=== PATIENT | male | born 1940 | race Caucasian/White ===

== ENCOUNTER 2020-03-21 11:20 | Emergency (ER) | payer MEDICARE ==
[2020-03-21] MEDS ORDERED: Sodium Chloride 0.9% 1000 ML 1,000 ML IV STA (11:59)
--- NOTE | 2020-03-21 11:59 | ERPHSYRPT ---
- History of Present Illness Time Seen by Provider: 03/21/20 11:57 Source: patient Exam Limitations: no limitations Patient Subjective Stated Complaint: leg pain, weakness, emesis on arrival to ED. Triage Nursing Assessment: pt to ED c/o bilat leg pain, weakness while ambulating, and had 1 episode emesis on arrival to ED. limited PO intake today, sips of pepsi is only PO intake today. denies ND or abd pain and states he has not been vomiting until now. reports being out in town without mask and has been at [employer] with no mask. pt denies any knowledge of COVID exposure but is unsure. rates 3/10 pain in legs that worsens with ambulation. unsteady gate with 1 assist. A&OX4. lungs clear and equal bilaterally. Physician History: c/o leg pain, weakness, vomiting for 1 day c/o bilat leg pain, weakness while ambulating, and had 1 episode emesis on arrival to ED. limited PO intake today, sips of pepsi is only PO intake today. denies ND or abd pain and states he has not been vomiting until now. reports being out in town without mask and has been at [employer] with no mask. pt denies any knowledge of COVID exposure but is unsure. rates 3/10 pain in legs that worsens with ambulation. unsteady gait Allergies/Adverse Reactions: No Known Drug Allergies Allergy (Unverified 03/29/14 00:07) Home Medications: Glimepiride 4 mg [Amaryl 4 mg] 4 mg PO DAILY 03/29/14 [History] Metformin HCl 1000 mg [Glucophage 1000 MG] 1,000 mg PO DAILY 03/29/14 [History] lisinopriL [Lisinopril] 20 mg PO DAILY 03/29/14 [History] Hx Tetanus, Diphtheria Vaccination/Date Given: No Hx Influenza Vaccination/Date Given: No Hx Pneumococcal Vaccination/Date Given: No Immunizations Up to Date: No Travel Risk - International Travel Have you traveled outside of the country in past 3 weeks: No - Coronavirus Screening Are you exhibiting any of the following symptoms?: Yes Symptoms: Vomiting/Diarrhea Close contact with a COVID-19 positive Pt in past 14-21 Days: No - Past Medical History Pertinent Past Medical History: Yes Neurological History: No Pertinent History ENT History: No Pertinent History Cardiac History: Hypertension Respiratory History: No Pertinent History Endocrine Medical History: Diabetes Type II Musculoskeletal History: No Pertinent History GI Medical History: No Pertinent History History: No Pertinent History Psycho-Social History: No Pertinent History Male Reproductive Disorders: No Pertinent History - Past Surgical History Past Surgical History: Yes Neuro Surgical History: No Pertinent History Cardiac: No Pertinent History Respiratory: No Pertinent History Gastrointestinal: Appendectomy Genitourinary: No Pertinent History Musculoskeletal: No Pertinent History Male Surgical History: No Pertinent History - Social History Smoking Status: Never smoker Exposure to second hand smoke: No Drug Use: none Patient Lives Alone: No - Nursing Vital Signs Nursing Vital Signs: Initial Vital Signs Temperature 99.1 F 03/21/20 11:35 Pulse Rate 60 03/21/20 11:35 Respiratory Rate 21 03/21/20 11:35 Blood Pressure 126/72 03/21/20 11:35 O2 Sat by Pulse Oximetry 97 03/21/20 11:35 Pain Scale Pain Intensity 3 - Physical Exam SpO2: 97 - Radiology Ultrasound Exam Arterial Lower Extremity Ultrasound: tele radiology report Ordered Tests: Active Orders 24 hr Category Date Time Status Orthostatic Vital Signs STAT Care 03/21/20 11:59 Active ULTRASOUND BILATERAL LOWER EXTREMITY [VENOUS BILATERAL Exams 03/21/20 12:47 Ordered EXTREMITY] [US] Stat AMYLASE Stat Lab 03/21/20 11:45 Completed CBC W DIFF Stat Lab 03/21/20 11:45 Completed CMP Stat Lab 03/21/20 11:45 Completed D-DIMER QUANTITATIVE Stat Lab 03/21/20 11:45 Completed LIPASE Stat Lab 03/21/20 11:45 Completed Lactic Acid Stat Lab 03/21/20 11:59 Completed UA W/RFX UR CULTURE Stat Lab 03/21/20 12:00 Ordered Medication Summary Discontinued Medications Generic Name Dose Route Start Last Admin Trade Name Freq PRN Reason Stop Dose Admin Sodium Chloride 1,000 mls @ 999 mls/hr 03/21/20 11:59 03/21/20 13:24 Sodium Chloride 0.9% 1000 Ml IV 03/21/20 12:59 Infused .Q1H1M STA Infusion Sodium Chloride Confirm 03/21/20 12:03 Sodium Chloride 0.9% 1000 Ml Administered 03/21/20 12:04 Dose 1,000 mls @ ud .ROUTE .[facility] Lab/Rad Data: Laboratory Result Diagrams 03/21/20 11:45 03/21/20 11:45 Laboratory Results 03/21/20 03/21/20 03/21/20 Range/Units 11:59 11:45 11:45 WBC (4.0-10.5) K/mm3 RBC (4.1-5.6) M/mm3 Hgb (12.5-18.0) gm/dl Hct (42-50) % MCV (78-100) fl MCH (26-32) pg MCHC (32-36) g/dl RDW (11.5-14.0) % Plt Count (150-450) K/mm3 MPV (7.5-11.0) fl Gran % (36.0-66.0) % Eos # (Auto) (0-0.5) Absolute Lymphs (auto) (1.0-4.6) Absolute Monos (auto) (0.0-1.3) Lymphocytes % (24.0-44.0) % Monocytes % (0.0-12.0) % Eosinophils % (0.00-5.0) % Basophils % (0.0-0.4) % Absolute Granulocytes (1.4-6.9) Basophils # (0-0.4) D-Dimer 536 H* (215-500) ng/mL Sodium 133 L (137-145) mmol/L Potassium 4.9 (3.5-5.1) mmol/L Chloride 105 (98-107) mmol/L Carbon Dioxide 18 L (22-30) mmol/L Anion Gap 15.0 (5-15) MEQ/L BUN 26 H (9-20) mg/dL Creatinine 1.01 (0.66-1.25) mg/dL Estimated GFR > 60.0 ML/MIN Glucose 108 H (74-106) mg/dL Lactic Acid 1.8 (0.4-2.0) Calcium 9.5 (8.4-10.2) mg/dL Total Bilirubin 1.00 (0.2-1.3) mg/dL AST 18 (17-59) U/L ALT 11 (0-50) U/L Alkaline Phosphatase 71 (38-126) U/L Serum Total Protein 7.8 (6.3-8.2) g/dL Albumin 4.1 (3.5-5.0) g/dL Amylase 42 (30-110) U/L Lipase 21 L (23-300) U/L 03/21/20 Range/Units 11:45 WBC 11.0 H (4.0-10.5) K/mm3 RBC 4.67 (4.1-5.6) M/mm3 Hgb 14.0 (12.5-18.0) gm/dl Hct 42.4 (42-50) % MCV 90.8 (78-100) fl MCH 30.0 (26-32) pg MCHC 33.0 (32-36) g/dl RDW 14.0 (11.5-14.0) % Plt Count 158 (150-450) K/mm3 MPV 9.8 (7.5-11.0) fl Gran % 73.8 H (36.0-66.0) % Eos # (Auto) 0.06 (0-0.5) Absolute Lymphs (auto) 1.55 (1.0-4.6) Absolute Monos (auto) 1.25 (0.0-1.3) Lymphocytes % 14.2 L (24.0-44.0) % Monocytes % 11.4 (0.0-12.0) % Eosinophils % 0.5 (0.00-5.0) % Basophils % 0.1 (0.0-0.4) % Absolute Granulocytes 8.08 H (1.4-6.9) Basophils # 0.01 (0-0.4) D-Dimer (215-500) ng/mL Sodium (137-145) mmol/L Potassium (3.5-5.1) mmol/L Chloride (98-107) mmol/L Carbon Dioxide (22-30) mmol/L Anion Gap (5-15) MEQ/L BUN (9-20) mg/dL Creatinine (0.66-1.25) mg/dL Estimated GFR ML/MIN Glucose (74-106) mg/dL Lactic Acid (0.4-2.0) Calcium (8.4-10.2) mg/dL Total Bilirubin (0.2-1.3) mg/dL AST (17-59) U/L ALT (0-50) U/L Alkaline Phosphatase (38-126) U/L Serum Total Protein (6.3-8.2) g/dL Albumin (3.5-5.0) g/dL Amylase (30-110) U/L Lipase (23-300) U/L - Progress Progress: improved Counseled pt/family regarding: lab results, diagnosis, need for follow-up, rad results - Departure Departure Disposition: Home Clinical Impression: Bilateral leg weakness, Peripheral vascular disease due to secondary diabetes, Spinal stenosis of lumbar region with neurogenic claudication, COVID-19 Condition: Stable Critical Care Time: No Referrals: SUNIL RODRIGUEZ MD [Primary Care Provider] - Instructions: Peripheral Vascular (Arterial) Disease (DC), Coronavirus Disease 2019 (COVID-19) (DC) Additional Instructions: Discharge/Care Plan LISA DARDEN was seen on 03/21/20 in the Emergency Room. The patient was counseled regarding Diagnosis,Lab results, Imaging studies, need for follow up and when to return to the Emergency Room. Prescriptions given: Discharge Note I have spoken with the patient and/or caregivers. I have explained the patient's condition, diagnosis and treatment plan based on the information available to me at this time. I have answered the patient's and/or caregiver's questions and addressed any concerns. The patient and/or caregivers have as good understanding of the patient's diagnosis, condition and treatment plan as can be expected at this point. The vital signs have been stable. The patient's condition is stable and appropriate for discharge from the emergency department. The patient will pursue further outpatient evaluation with the primary care physician or other designated or consulting physician as outlined in the discharge instructions. The patient and/or caregivers are agreeable to this plan of care and follow-up instructions have been explained in detail. The patient and/or caregivers have received these instruction. The patient/and or caregivers are aware that any significant change in condition or worsening of symptoms should prompt an immediate return to this or the closest emergency department or call 911. LISA DARDEN was seen on 03/21/20 n the Emergency Room. At that time you were treated for an emergent condition, during your visit Laboratory, Radiology and/or other procedures may have been ordered. It is very important that you follow-up with your Primary Care Physician SUNIL RODRIGUEZ within the next 24-48 hours to review your Emergency Room visit and the final results of testing that was ordered. Some test results such as Urine Cultures, Blood Cultures, and other cultures if ordered will not be finalized for 24-48 hours. If you do not have a Primary Care Provider please call the medical records department at [phone] ext [phone] to obtain a copy of your results or you may sign into our patient portal to obtain these results by visiting us @ [email or web address] and completing the following steps: 1. Click on the Patient Portal link 2. Click the Patient Self Enrollment Link to complete the enrollment form and entering your 3. Once the enrollment form is completed you will receive an email with a temporary ID and password at the email address you provided. 4. Next choose a user name and password. Your user name must be at least 4 characters long and your password must be at least 4 characters long. 5. Choose a security question from the list and provide your answer to the question. If you already have signed into the Health Portal you may access your Health Care Information 10/10 by the following steps: 1. Login to our website @ [email or web address] 2. Enter your original user name and password. FAQS The [facility] Health Portal is an online tool that contains your Lab Results, Rad iology Reports, Visit History, Discharge Instructions and Health Summary Lab and Radiology Results will not be available for 72 hours on the portal. The Portal is a secure site, passwords are encryted and URLs are re-written so they cannot be copied and pasted. You and authorized family members are the only ones who can access your Portal. Also there is a timeout feature that protects your information if you leave the Portal page open. If you have technical difficulty please use the Contact Us link on the page this will allow you to submit any questions you have regarding the Portal or you may contact the Medical Record Department at [phone] ext [phone].
[2020-03-21] MEDS ORDERED: Sodium Chloride 0.9% 1000 ML 1,000 ML ONE (12:03)
[2020-03-21 12:06] LABS: Absolute Neutrophil Ct (ANC) 8.08 (1.4-6.9); BASOPHIL % 0.1 % (0.0-0.4); Basophil (Absolute #) 0.01 (0-0.4); Eosinophil % 0.5 % (0.00-5.0); Eosinophil (Absolute #) 0.06 (0-0.5); Hematocrit 42.4 % (42-50); Lymphocyte (Absolute #) 1.55 (1.0-4.6); Lymphocytes % 14.2 % (24.0-44.0); Mean Cell Volume 90.8 fl (78-100); Mean Platelet Volume 9.8 fl (7.5-11.0); Monocyte (Absolute #) 1.25 (0.0-1.3); Monocytes % 11.4 % (0.0-12.0); Neutrophil % 73.8 % (36.0-66.0); Platelet Count 158 K/mm3 (150-450); Red Blood Count 4.67 M/mm3 (4.1-5.6)
[2020-03-21 12:14] LABS: ALBUMIN 4.1 g/dL (3.5-5.0); ALKALINE PHOSPHATASE 71 U/L (38-126); AMYLASE 42 U/L (30-110); BLOOD UREA NITROGEN 26 mg/dL (9-20); CHLORIDE 105 mmol/L (98-107); Calcium 9.5 mg/dL (8.4-10.2); Carbon Dioxide 18 mmol/L (22-30); Creatinine 1 1.01 mg/dL (0.66-1.25); EST GLOMERULAR FILTRATION RATE > 60.0 ML/MIN; Glucose 108 mg/dL (74-106); LIPASE 21 U/L (23-300); Potassium 4.9 mmol/L (3.5-5.1); SGOT/AST 18 U/L (17-59); SGPT/ALT 11 U/L (0-50); SODIUM 133 mmol/L (137-145); Total Protein 7.8 g/dL (6.3-8.2)
[2020-03-21 13:13] VITALS: BP 116/67
[2020-03-21 14:00] VITALS: PULSE 77; O2SAT 98
--- NOTE | 2020-03-21 17:04 | XRAY ---
Indication: Weakness. Suspect Covid 19. 2-dimensional sonogram and color Doppler imaging of the major venous vessels of the left and right leg was performed. Comparison: None Minimal nonoccluding thrombus seen in the distal left femoral vein. No other thrombus seen in the examined deep venous vessels of the remaining left and right leg including greater saphenous vein. Patent veins demonstrate normal compressibility. Venous waveforms are normal with and without augmentation. Impression: 1. Nonoccluding DVT distal left femoral vein. 2. Right leg negative for DVT. Comment: Preliminary report was given.
== END 2020-03-21 14:07 | disposition home or self-care (01) ==
LOC: ED 11:20
DX: M62.81 Muscle weakness (generalized) (principal); E11.51 Type 2 diabetes mellitus with diabetic peripheral angiopathy without gangrene; M48.062 Spinal stenosis, lumbar region with neurogenic claudication; U07.1 COVID-19; M79.605 Pain in left leg; M79.604 Pain in right leg; R11.2 Nausea with vomiting, unspecified; Z79.899 Other long term (current) drug therapy; R19.7 Diarrhea, unspecified; I10 Essential (primary) hypertension
CPT/HCPCS: 36000; 36415; 80053; 82150; 83605; 83690; 85025; 85379; 93970; 96360; 99284; U0003

== ENCOUNTER 2021-06-29 18:49 | Observation (INO) | payer MEDICARE ==
[2021-06-29] MEDS ORDERED: Magnesium 1 Gm / 100 Ml D5W*** 100 ML IV ONE (19:05)
[2021-06-29] MEDS ORDERED: Sodium Chloride 0.9% 1000 ML 1,000 ML IV STA (19:11)
[2021-06-29] MEDS: Magnesium 1 Gm / 100 Ml D5W*** 100 ML IV SCH ×2 (19:21→19:48)
--- NOTE | 2021-06-29 19:24 | ERPHSYRPT ---
- History of Present Illness Time Seen by Provider: 06/29/21 18:58 Source: patient, EMS Exam Limitations: other (Dementia) Patient Subjective Stated Complaint: PT HERE FOR POSSIBLE FALL, EMS WAS CALLED TO HOUSE FOR A FALL, UNSURE HOW LONG PT WAS ON FLOOR, EMS FOUND PT IN BED, HE DENIES ANY COS Triage Nursing Assessment: PT ALERT, ORIENTED TO PERSON,PLACE AND TIME, HE IS UNSURE IF HE FELL, PT CLOTHES DRY AND CLEAN, RESP EASY, FACE MASK IN PLACE, NO EDEMA NOTED. Physician History: 80 years old male with history of dementia, hypertension, hyperlipidemia, diabetes mellitus, pacemaker placement is brought in the ER by EMS with questionable history of fall, being on the floor per EMS for the last 2 days. On EMS arrival patient was lying on the bed. Patient is awake alert and oriented and denies any fall, chest pain/shortness of breath, injury anywhere else. While in the ER patient has his run of V. tach without any symptoms. Patient is not a good historian and history is limited. Timing/Duration: day(s) (2), worse Severity: moderate Associated Symptoms: weakness Allergies/Adverse Reactions: No Known Drug Allergies Allergy (Verified 06/29/21 19:05) Home Medications: Dabigatran Etexilate Mesylate [Pradaxa] 1 ea DAILY 06/29/21 [History] Donepezil HCl [Aricept] 5 mg PO DAILY 06/29/21 [History] Empagliflozin [Jardiance] 10 mg PO DAILY 06/29/21 [History] Glimepiride 4 mg [Amaryl 4 mg] 4 mg PO DAILY 06/29/21 [History] Pravastatin Sodium 1 ea DAILY 06/29/21 [History] Spironolactone 25 mg [Aldactone 25 MG] 25 mg PO DAILY 06/29/21 [History] Tamsulosin HCl 0.4 mg [Flomax 0.4 MG] 1 ea DAILY 06/29/21 [History] Hx Tetanus, Diphtheria Vaccination/Date Given: No Hx Influenza Vaccination/Date Given: No Hx Pneumococcal Vaccination/Date Given: No Immunizations Up to Date: Yes Travel Risk - International Travel Have you traveled outside of the country in past 3 weeks: No - Coronavirus Screening Are you exhibiting any of the following symptoms?: Yes Symptoms: Fever Close contact with a COVID-19 positive Pt in past 14-21 Days: No - Vaccine Status Have you recieved a Covid-19 vaccination: Yes Stacker: Unknown - Vaccination Dates Date of 2cond Vaccination (if applicable): 2020 Dates if Unknown: ? - Review of Systems All Other Systems: Unable due to dementia - Past Medical History Pertinent Past Medical History: Yes Neurological History: No Pertinent History ENT History: No Pertinent History Cardiac History: Hypertension Respiratory History: No Pertinent History Endocrine Medical History: Diabetes Type II Musculoskeletal History: No Pertinent History GI Medical History: No Pertinent History History: No Pertinent History Psycho-Social History: No Pertinent History Male Reproductive Disorders: No Pertinent History - Past Surgical History Past Surgical History: Yes Neuro Surgical History: No Pertinent History Cardiac: Pacemaker Respiratory: No Pertinent History Gastrointestinal: Appendectomy Genitourinary: No Pertinent History Musculoskeletal: No Pertinent History Male Surgical History: No Pertinent History - Social History Smoking Status: Never smoker Exposure to second hand smoke: No Drug Use: none Patient Lives Alone: No - Nursing Vital Signs Nursing Vital Signs: Initial Vital Signs Temperature 100.1 F 06/29/21 18:53 Pulse Rate 100 H 06/29/21 18:53 Respiratory Rate 18 06/29/21 18:53 Blood Pressure 159/82 06/29/21 18:53 O2 Sat by Pulse Oximetry 96 06/29/21 18:53 Pain Scale Pain Intensity 0 - Physical Exam General Appearance: no apparent distress, alert Eye Exam: PERRL/EOMI, eyes nml inspection Ears, Nose, Throat Exam: normal ENT inspection, TMs normal, pharynx normal, moist mucous membranes Neck Exam: normal inspection, non-tender, supple, full range of motion Respiratory Exam: normal breath sounds, lungs clear Cardiovascular Exam: regular rate/rhythm, normal heart sounds Gastrointestinal/Abdomen Exam: soft, normal bowel sounds, No tenderness Back Exam: normal inspection, normal range of motion Extremity Exam: normal inspection, normal range of motion Neurologic Exam: alert, oriented x 3, cooperative, history department chair II-XII nml as tested Skin Exam: normal color SpO2 Interpretation: normal SpO2: 96 O2 Delivery: Room Air - Course EKG Interpreted by Me: RATE (96, paced), prolonged QT interval, Left Bundle Branch Block, Q-wave, Non-specific ST Changes, Other (Second EKG time 11:33 PM. Rate 95, sinus rhythm, atrial premature complexes, right bundle branch block, ST depression in inferolateral leads.) Ordered Tests: Active Orders 24 hr Category Date Time Status EKG-ER Only STAT Care 06/29/21 19:11 Active IV Insertion STAT Care 06/29/21 19:11 Active NPO (ED) STAT Care 06/29/21 19:11 Active CERVICAL SPINE WO CONTRAST [CT] Stat Exams 06/29/21 19:11 Taken CHEST 1 VIEW (PORTABLE) Stat Exams 06/29/21 19:11 Taken HEAD WITHOUT CONTRAST [CT] Stat Exams 06/29/21 19:11 Taken BLOOD CULTURE Stat Lab 06/29/21 20:00 Received BNP [NT PRO BNP] Stat Lab 06/29/21 19:20 Completed CBC W DIFF Stat Lab 06/29/21 19:20 Completed CK (IN-HOUSE) [CK-Creatinine Phosphokinase] Stat Lab 06/29/21 19:20 Completed CMP Stat Lab 06/29/21 19:20 Completed LIPASE Stat Lab 06/29/21 19:20 Completed MAG [MAGNESIUM] Stat Lab 06/29/21 19:20 Completed TROPONIN Q3H Lab 06/29/21 19:20 Completed TROPONIN Q3H Lab 06/29/21 22:25 Completed TROPONIN Q3H Lab 06/30/21 01:15 Ordered TROPONIN Q3H Lab 06/30/21 04:15 Ordered TROPONIN Q3H Lab 06/30/21 07:15 Ordered Transfer Order Routine Transfer 06/29/21 Ordered Medication Summary Generic Name Dose Route Start Last Admin Trade Name Freq PRN Reason Stop Dose Admin Magnesium Sulfate/Dextrose 100 mls @ 100 mls/hr 06/29/21 19:15 06/29/21 19:48 Magnesium 1 Gm / 100 Ml D5w IV 06/29/21 21:14 100 mls/hr Q1H MIRTHA Administration Discontinued Medications Generic Name Dose Route Start Last Admin Trade Name Freq PRN Reason Stop Dose Admin Aspirin 324 mg 06/29/21 23:49 06/29/21 23:52 Aspirin 81 Mg Tab.Chew PO 06/29/21 23:50 324 mg STAT ONE Administration Magnesium Sulfate/Dextrose Confirm 06/29/21 19:05 Magnesium 1 Gm / 100 Ml D5w Administered 06/29/21 19:06 Dose 100 mls @ ud IV .STK-MED ONE Sodium Chloride 1,000 mls @ 999 mls/hr 06/29/21 19:11 06/29/21 21:21 Sodium Chloride 0.9% 1000 Ml IV 06/29/21 20:11 Infused .Q1H1M STA Infusion Sodium Chloride Confirm 06/29/21 19:46 Sodium Chloride 0.9% 1000 Ml Administered 06/29/21 19:47 Dose 1,000 mls @ ud .ROUTE .STK-MED ONE Lab/Rad Data: Laboratory Result Diagrams 06/29/21 19:20 06/29/21 19:20 Laboratory Results 06/29/21 06/29/21 06/29/21 Range/Units 22:25 21:30 19:20 WBC (4.0-10.5) K/mm3 RBC (4.1-5.6) M/mm3 Hgb (12.5-18.0) gm/dl Hct (42-50) % MCV (78-100) fl MCH (26-32) pg MCHC (32-36) g/dl RDW (11.5-14.0) % Plt Count (150-450) K/mm3 MPV (7.5-11.0) fl Gran % (36.0-66.0) % Eos # (Auto) (0-0.5) Absolute Lymphs (auto) (1.0-4.6) Absolute Monos (auto) (0.0-1.3) Lymphocytes % (24.0-44.0) % Monocytes % (0.0-12.0) % Eosinophils % (0.00-5.0) % Basophils % (0.0-0.4) % Absolute Granulocytes (1.4-6.9) Basophils # (0-0.4) Sodium (137-145) mmol/L Potassium (3.5-5.1) mmol/L Chloride (98-107) mmol/L Carbon Dioxide (22-30) mmol/L Anion Gap (5-15) MEQ/L BUN (9-20) mg/dL Creatinine (0.66-1.25) mg/dL Estimated GFR ML/MIN Glucose (74-106) mg/dL Calcium (8.4-10.2) mg/dL Magnesium (1.6-2.3) mg/dL Total Bilirubin (0.2-1.3) mg/dL AST (17-59) U/L ALT (0-50) U/L Alkaline Phosphatase (38-126) U/L Creatine Kinase (55-170) U/L Troponin I 0.128 H* 0.066 H* (0.000-0.034) ng/mL NT-Pro-B Natriuret Pep (0-1800) pg/mL Serum Total Protein (6.3-8.2) g/dL Albumin (3.5-5.0) g/dL Lipase (23-300) U/L Urinalys Dipstick Clnc Urine Color (YELLOW) Urine Appearance (CLEAR) Urine pH (5-6) Ur Specific Linden (1.005-1.025) POC Urine Protein Conf (Negative) Urine Ketones (NEGATIVE) Urine Nitrite (NEGATIVE) Urine Bilirubin (NEGATIVE) Urine Urobilinogen (0-1) mg/dL Urine Leukocytes (NEGATIVE) Urine WBC (Auto) (0-5) /HPF Urine RBC (Auto) (0-2) /HPF U Epithel Cells (Auto) (FEW) /HPF Urine Bacteria (Auto) (NEGATIVE) /HPF Urine RBC (0-5) Lucas/ul Urine Mucus (Auto) (NEGATIVE) /HPF Ur Culture Indicated? Urine Glucose (NEGATIVE) mg/dL Influenza Type A Ag NEGATIVE (NEGATIVE) Influenza Type B Ag NEGATIVE (NEGATIVE) RSV (PCR) NEGATIVE (Negative) SARS-CoV-2 (PCR) NEGATIVE (NEGATIVE) 06/29/21 06/29/21 06/29/21 Range/Units 19:20 19:20 19:20 WBC 16.0 H (4.0-10.5) K/mm3 RBC 4.85 (4.1-5.6) M/mm3 Hgb 15.0 (12.5-18.0) gm/dl Hct 45.6 (42-50) % MCV 94.0 (78-100) fl MCH 30.9 (26-32) pg MCHC 32.9 (32-36) g/dl RDW 13.7 (11.5-14.0) % Plt Count 136 L (150-450) K/mm3 MPV 9.9 (7.5-11.0) fl Gran % 83.8 H (36.0-66.0) % Eos # (Auto) 0.01 (0-0.5) Absolute Lymphs (auto) 1.34 (1.0-4.6) Absolute Monos (auto) 1.21 (0.0-1.3) Lymphocytes % 8.4 L (24.0-44.0) % Monocytes % 7.6 (0.0-12.0) % Eosinophils % 0.1 (0.00-5.0) % Basophils % 0.1 (0.0-0.4) % Absolute Granulocytes 13.39 H (1.4-6.9) Basophils # 0.02 (0-0.4) Sodium 135 L (137-145) mmol/L Potassium 4.5 (3.5-5.1) mmol/L Chloride 104 (98-107) mmol/L Carbon Dioxide 15 L* (22-30) mmol/L Anion Gap 20.5 H (5-15) MEQ/L BUN 28 H (9-20) mg/dL Creatinine 0.91 (0.66-1.25) mg/dL Estimated GFR > 60.0 ML/MIN Glucose 178 H (74-106) mg/dL Calcium 9.0 (8.4-10.2) mg/dL Magnesium 2.7 H (1.6-2.3) mg/dL Total Bilirubin 1.10 (0.2-1.3) mg/dL AST 27 (17-59) U/L ALT 15 (0-50) U/L Alkaline Phosphatase 75 (38-126) U/L Creatine Kinase 141 (55-170) U/L Troponin I (0.000-0.034) ng/mL NT-Pro-B Natriuret Pep 4570 H (0-1800) pg/mL Serum Total Protein 7.5 (6.3-8.2) g/dL Albumin 4.2 (3.5-5.0) g/dL Lipase 13 L (23-300) U/L Urinalys Dipstick Clnc Urine Color (YELLOW) Urine Appearance (CLEAR) Urine pH (5-6) Ur Specific Lind[place] (1.005-1.025) POC Urine Protein Conf (Negative) Urine Ketones (NEGATIVE) Urine Nitrite (NEGATIVE) Urine Bilirubin (NEGATIVE) Urine Urobilinogen (0-1) mg/dL Urine Leukocytes (NEGATIVE) Urine WBC (Auto) (0-5) /HPF Urine RBC (Auto) (0-2) /HPF U Epithel Cells (Auto) (FEW) /HPF Urine Bacteria (Auto) (NEGATIVE) /HPF Urine RBC (0-5) Lucas/ul Urine Mucus (Auto) (NEGATIVE) /HPF Ur Culture Indicated? Urine Glucose (NEGATIVE) mg/dL Influenza Type A Ag (NEGATIVE) Influenza Type B Ag (NEGATIVE) RSV (PCR) (Negative) SARS-CoV-2 (PCR) (NEGATIVE) 06/29/21 Range/Units 19:11 WBC (4.0-10.5) K/mm3 RBC (4.1-5.6) M/mm3 Hgb (12.5-18.0) gm/dl Hct (42-50) % MCV (78-100) fl MCH (26-32) pg MCHC (32-36) g/dl RDW (11.5-14.0) % Plt Count (150-450) K/mm3 MPV (7.5-11.0) fl Gran % (36.0-66.0) % Eos # (Auto) (0-0.5) Absolute Lymphs (auto) (1.0-4.6) Absolute Monos (auto) (0.0-1.3) Lymphocytes % (24.0-44.0) % Monocytes % (0.0-12.0) % Eosinophils % (0.00-5.0) % Basophils % (0.0-0.4) % Absolute Granulocytes (1.4-6.9) Basophils # (0-0.4) Sodium (137-145) mmol/L Potassium (3.5-5.1) mmol/L Chloride (98-107) mmol/L Carbon Dioxide (22-30) mmol/L Anion Gap (5-15) MEQ/L BUN (9-20) mg/dL Creatinine (0.66-1.25) mg/dL Estimated GFR ML/MIN Glucose (74-106) mg/dL Calcium (8.4-10.2) mg/dL Magnesium (1.6-2.3) mg/dL Total Bilirubin (0.2-1.3) mg/dL AST (17-59) U/L ALT (0-50) U/L Alkaline Phosphatase (38-126) U/L Creatine Kinase (55-170) U/L Troponin I (0.000-0.034) ng/mL NT-Pro-B Natriuret Pep (0-1800) pg/mL Serum Total Protein (6.3-8.2) g/dL Albumin (3.5-5.0) g/dL Lipase (23-300) U/L Urinalys Dipstick Clnc MAIN LAB Urine Color YELLOW (YELLOW) Urine Appearance CLEAR (CLEAR) Urine pH 5.5 (5-6) Ur Specific [place] 1.020 (1.005-1.025) POC Urine Protein Conf TRACE (Negative) Urine Ketones MODERATE-40 (NEGATIVE) Urine Nitrite NEGATIVE (NEGATIVE) Urine Bilirubin NEGATIVE (NEGATIVE) Urine Urobilinogen 0.2 (0-1) mg/dL Urine Leukocytes NEGATIVE (NEGATIVE) Urine WBC (Auto) NONE (0-5) /HPF Urine RBC (Auto) NONE (0-2) /HPF U Epithel Cells (Auto) NONE (FEW) /HPF Urine Bacteria (Auto) NONE (NEGATIVE) /HPF Urine RBC SMALL (0-5) Lucas/ul Urine Mucus (Auto) SLIGHT (NEGATIVE) /HPF Ur Culture Indicated? NO Urine Glucose 500 (NEGATIVE) mg/dL Influenza Type A Ag (NEGATIVE) Influenza Type B Ag (NEGATIVE) RSV (PCR) (Negative) SARS-CoV-2 (PCR) (NEGATIVE) - Progress Progress: improved Progress Note: 06/29/21 21:17 80 years old is evaluated for generalized weakness, fall. Patient is awake alert and oriented on presentation, not in any distress. Patient EKG showed paced rhythm, given fluids. Work-up showed initial troponins 0.066 without any chest pain. Chest x-ray showed chronic changes no acute findings. Has elevated gap, mildly low bicarb, elevated mag, do not think patient has DKA but more of her dehydration. Patient has a run of V. tach while in the ER for a few seconds and is given IV magnesium and no more episode of her work.. I have obtained CT head and cervical spine which are negative for any acute findings as well. Discussed with and patient is admitted for observation. 06/29/21 21:20 06/30/21 00:45 Patient has second troponin which is elevated but remains chest pain-free. I have discussed with patient and in detail about NSTEMI and the fact that we do not have cardiology services here and possible transfer to [facility]. They both refused to go to [facility] and do understand the risk of full-blown heart attack, delay in getting definitive treatment but still wants to stay here. And patient is being admitted here. Discussed with : Merle Will see patient in: hospital (observation) Counseled pt/family regarding: lab results, diagnosis, rad results - Departure Departure Disposition: Observation Clinical Impression: Generalized weakness, Dehydration, Hypermagnesemia, Ventricular tachycardia, Fall, NSTEMI (non-ST elevated myocardial infarction) Condition: Stable Critical Care Time: No Referrals: SUNIL RODRIGUEZ MD [Primary Care Provider] - Follow up/PCP as directed
[2021-06-29 19:35] LABS: Absolute Neutrophil Ct (ANC) 13.39 (1.4-6.9); Basophil (Absolute #) 0.02 (0-0.4); Eosinophil % 0.1 % (0.00-5.0); Eosinophil (Absolute #) 0.01 (0-0.5); Hematocrit 45.6 % (42-50); Lymphocyte (Absolute #) 1.34 (1.0-4.6); Lymphocytes % 8.4 % (24.0-44.0); Mean Corpuscular Hemoglobin 30.9 pg (26-32); Mean Corpuscular Hgb Concent. 32.9 g/dl (32-36); Mean Platelet Volume 9.9 fl (7.5-11.0); Monocyte (Absolute #) 1.21 (0.0-1.3); Monocytes % 7.6 % (0.0-12.0); Neutrophil % 83.8 % (36.0-66.0); Platelet Count 136 K/mm3 (150-450); Red Blood Count 4.85 M/mm3 (4.1-5.6); Red Cell Distribution Width 13.7 % (11.5-14.0)
[2021-06-29] MEDS ORDERED: Sodium Chloride 0.9% 1000 ML 1,000 ML ONE (19:46)
[2021-06-29 20:26] LABS: ALBUMIN 4.2 g/dL (3.5-5.0); ALKALINE PHOSPHATASE 75 U/L (38-126); ANION GAP 20.5 MEQ/L (5-15); BLOOD UREA NITROGEN 28 mg/dL (9-20); CHLORIDE 104 mmol/L (98-107); Creatinine 1 0.91 mg/dL (0.66-1.25); EST GLOMERULAR FILTRATION RATE > 60.0 ML/MIN; Glucose 178 mg/dL (74-106); LIPASE 13 U/L (23-300); Potassium 4.5 mmol/L (3.5-5.1); SGOT/AST 27 U/L (17-59); SGPT/ALT 15 U/L (0-50); SODIUM 135 mmol/L (137-145); Total Protein 7.5 g/dL (6.3-8.2)
[2021-06-29 20:33] LABS: Carbon Dioxide 15 mmol/L (22-30)
[2021-06-29 20:40] LABS: MAGNESIUM 2.7 mg/dL (1.6-2.3)
[2021-06-29 21:16] LABS: Appearance CLEAR (CLEAR); Bilirubin NEGATIVE (NEGATIVE); Dipstick done @ ? MAIN LAB; Glucose 500 mg/dL (NEGATIVE); Ketones MODERATE-40 (NEGATIVE); Nitrite NEGATIVE (NEGATIVE); Ph 5.5 (5-6); Protein,Urine Dip TRACE (Negative); RBC SMALL Ery/ul (0-5); Urobilinogen 0.2 mg/dL (0-1)
[2021-06-29 21:18] LABS: Mucus SLIGHT /HPF (NEGATIVE); Urine Cultured Indicated? NO
[2021-06-29 22:23] LABS: INFLUENZA A NEGATIVE (NEGATIVE); INFLUENZA B NEGATIVE (NEGATIVE); RESPIRATORY SYNCTIAL VIRUS NEGATIVE (Negative); SARS-CoV-2 Xpert Express NEGATIVE (NEGATIVE)
[2021-06-29] MEDS ORDERED: BABY ASPIRIN 81 MG CHEW PO ONE (23:49)
[2021-06-30] MEDS ORDERED: DUONEB 0.5-3 MG/3 ml Neb IH PRN (01:36)
[2021-06-30] MEDS ORDERED: TYLENOL 325 MG PO PRN (01:36)
[2021-06-30] MEDS ORDERED: HUMALOG SQ PRN (01:36)
[2021-06-30] MEDS: Sodium Chloride 0.9% 1000 ML 1,000 ML IV SCH ×3 (01:53→23:43)
[2021-06-30 05:37] LABS: Absolute Neutrophil Ct (ANC) 12.26 (1.4-6.9); Basophil (Absolute #) 0.02 (0-0.4); Eosinophil (Absolute #) 0 (0-0.5); Hematocrit 43.5 % (42-50); Hemoglobin 14.4 gm/dl (12.5-18.0); Lymphocyte (Absolute #) 1.29 (1.0-4.6); Lymphocytes % 8.6 % (24.0-44.0); Mean Cell Volume 93.8 fl (78-100); Mean Corpuscular Hgb Concent. 33.1 g/dl (32-36); Mean Platelet Volume 9.6 fl (7.5-11.0); Monocyte (Absolute #) 1.35 (0.0-1.3); Neutrophil % 82.3 % (36.0-66.0); Platelet Count 124 K/mm3 (150-450); Red Blood Count 4.64 M/mm3 (4.1-5.6); Red Cell Distribution Width 13.7 % (11.5-14.0); White Blood Count 14.9 K/mm3 (4.0-10.5)
[2021-06-30 06:43] LABS: ALBUMIN 3.6 g/dL (3.5-5.0); ALKALINE PHOSPHATASE 59 U/L (38-126); ANION GAP 17.3 MEQ/L (5-15); BLOOD UREA NITROGEN 29 mg/dL (9-20); CHLORIDE 108 mmol/L (98-107); Calcium 8.7 mg/dL (8.4-10.2); Creatinine 1 0.88 mg/dL (0.66-1.25); EST GLOMERULAR FILTRATION RATE > 60.0 ML/MIN; Glucose 139 mg/dL (74-106); Potassium 4.3 mmol/L (3.5-5.1); SGOT/AST 31 U/L (17-59); SGPT/ALT 14 U/L (0-50); SODIUM 137 mmol/L (137-145); Total Protein 6.7 g/dL (6.3-8.2)
[2021-06-30 07:30] LABS: Carbon Dioxide 16 mmol/L (22-30)
--- NOTE | 2021-06-30 08:43 | XRAY ---
Indication: Pain. Status post fall. Multiple contiguous axial images obtained through the head without contrast. Comparison: March 29, 2014. Age-appropriate global atrophy. No acute intracranial hemorrhage, abnormal extra-axial fluid collection, or mass effect. Fourth ventricle is midline without hydrocephalus. Gibbons-white matter differentiation preserved. Bony calvarium intact. Mild mucosal thickening left ethmoid sinus. Remaining paranasal sinuses and mastoid air cells are clear. Impression: Continued negative CT head without contrast exam. Minimal paranasal sinus disease.
[2021-06-30] MEDS: Glucophage 500 MG PO SCH ×2 (08:45→17:14)
[2021-06-30] MEDS: AMARYL 4 MG PO SCH ×2 (08:45→17:14)
--- NOTE | 2021-06-30 08:47 | XRAY ---
Indication: Pain following fall. Comparison: March 28, 2014. Portable chest remains clear. Heart not enlarged with interval cardiac valve replacement surgery and left single lead pacemaker. Bony thorax intact with mild osteopenia and degenerative changes.
--- NOTE | 2021-06-30 08:47 | XRAY ---
Indication: Pain following fall. Multiple contiguous axial images obtained through the cervical spine. Sagittal and coronal reformatted images obtained. Comparison: None Age-related osteopenia. Axial images negative for acute fracture or suspicious bony lesions. There is mild/moderate multilevel degenerative endplate spurring, greatest C2-C3 level with subsequent spinal canal narrowing. Also mild/moderate multilevel bilateral degenerative facet hypertrophy and moderate atlantoaxial degenerative arthropathy. Sagittal and coronal reformatted images demonstrates normal alignment. Minimal C5-C6 disc space narrowing. No acute compression fracture, subluxation, or jumped facet. Normal appearing craniocervical junction. Visualized noncontrasted soft tissues demonstrates moderate bilateral carotid calcifications and partially visualized left cardiac pacer lead. Impression: 1. Negative acute fracture/subluxation. 2. Osteopenia and multilevel degenerative changes.
[2021-06-30] MEDS: PROTONIX 40 MG IV IV SCH (09:37)
[2021-06-30] MEDS: PRADAXA 75 MG PO SCH ×2 (09:37→21:04)
[2021-06-30] MEDS: Imdur 30 MG PO SCH (09:37)
[2021-06-30] MEDS: Lopressor 25MG Tab PO SCH ×2 (09:37→21:04)
[2021-06-30] MEDS: Aldactone 25 MG PO SCH (09:37)
[2021-06-30] MEDS: Flomax 0.4 MG PO SCH (09:37)
[2021-06-30] MEDS: ECOTRIN 81 MG PO SCH (09:37)
[2021-06-30] MEDS: ZOCOR 20MG PO SCH (09:37)
[2021-06-30] MEDS: JARDIANCE PO SCH (09:37)
[2021-06-30] MEDS ORDERED: ASPIRIN 81 MG PO SCH (10:00)
[2021-06-30] MEDS ORDERED: NON-FORMULARY ITEM (Pravastatin Sodium [Pravastatin Sodium] 40 MG Tablet) PO SCH (10:00)
[2021-06-30] MEDS ORDERED: DABIGATRAN ETEXILATE MESYLATE 150 MG PO SCH (10:00)
[2021-06-30 10:39] LABS: Risk Ratio 4.8
--- NOTE | 2021-06-30 14:15 | PCM.HP ---
History of Present Illness - Chief Complaint Chief Complaint: Generalized weakness, fall, dehydration History of Present Illness: is a 80 year old male.with history of dementia, hypertension, hyperlipidemia, diabetes mellitus, pacemaker placement is brought in the ER by EMS with questionable history of fall, being on the floor per EMS for the last 2 days. On EMS arrival patient was lying on the bed. Patient is awake alert and oriented and denies any fall, chest pain/shortness of breath, injury anywhere else. While in the ER patient has his run of [employer] without any symptoms. Patient is not a good historian and history is limited. Timing/Duration: day(s) (2), worse Severity: moderate Associated Symptoms: weakness - Review of Systems Constitutional: No Fever, No Chills Eyes: No Symptoms Ears, Nose, & Throat: No Symptoms Respiratory: No Cough, No Short Of Breath Cardiac: No Chest Pain, No Edema, No Syncope Abdominal/Gastrointestinal: No Abdominal Pain, No Nausea, No Vomiting, No Diarrhea Genitourinary Symptoms: No Dysuria Musculoskeletal: Fall, No Back Pain, No Neck Pain Skin: No Rash Neurological: No Dizziness, No Focal Weakness, No Sensory Changes Psychological: No Symptoms Endocrine: No Symptoms Hematologic/Lymphatic: No Symptoms Immunological/Allergic: No Symptoms Medications & Allergies Home Medications: Home Medication List Dabigatran Etexilate Mesylate [Pradaxa] 1 ea PO BID 06/29/21 [History Confirmed 06/30/21] Donepezil HCl [Aricept] 5 mg PO HS 06/29/21 [History Confirmed 06/30/21] Empagliflozin [Jardiance] 25 mg PO DAILY 06/29/21 [History Confirmed 06/30/21] Glimepiride 4 mg [Amaryl 4 mg] 4 mg PO BID 06/29/21 [History Confirmed 06/30/21] Pravastatin Sodium 1 ea PO DAILY 06/29/21 [History Confirmed 06/30/21] Spironolactone 25 mg [Aldactone 25 MG] 25 mg PO DAILY 06/29/21 [History Confirmed 06/30/21] Tamsulosin HCl 0.4 mg [Flomax 0.4 MG] 1 ea PO DAILY 06/29/21 [History Confirmed 06/30/21] Aspirin [Aspirin EC] 81 mg PO DAILY 06/30/21 [History Confirmed 06/30/21] Isosorbide Mononitrate 30 mg [Imdur 30 MG] 30 mg PO DAILY 06/30/21 [History Confirmed 06/30/21] Metformin HCl 500 mg [Glucophage 500 MG] 1,000 mg PO BIDWM 06/30/21 [His tory Confirmed 06/30/21] Metoprolol Tartrate 25 mg [Lopressor 25MG Tab] 25 mg PO BID 06/30/21 [History Confirmed 06/30/21] Allergies/Adverse Reactions: Allergies Allergy/AdvReac Type Severity Reaction Status Date / Time No Known Drug Allergies Allergy Verified 06/29/21 19:05 - Past Medical History Past Medical History: Yes Neurological History: Dementia ENT History: No Pertinent History Cardiac History: Hypertension Respiratory History: No Pertinent History Endocrine Medical History: Diabetes Type II Musculoskelatal History: No Pertinent History GI Medical History: No Pertinent History History: No Pertinent History Pyscho-Social History: No Pertinent History Male Reproductive Disorders: No Pertinent History - Past Surgical History Past Surgical History: Yes Neuro Surgical History: No Pertinent History Cardiac History: Pacemaker Respiratory Surgery: No Pertinent History GI Surgical History: Appendectomy Genitourinary Surgical Hx: No Pertinent History Musculskeletal Surgical Hx: No Pertinent History Male Surgical History: No Pertinent History - Social History Smoking Status: Former smoker Exposure to second hand smoke: No Alcohol: None Drug Use: none - Physical Exam Vital Signs: Vital Signs - 24 hr Temp Pulse Resp BP Pulse Ox 06/30/21 11:42 97.4 F 110 H 16 139/74 97 06/30/21 07:30 97.3 F 78 16 125/63 96 06/30/21 04:05 96 H 20 96 06/30/21 02:29 97.5 F 95 H 22 116/60 95 06/30/21 01:00 88 24 109/61 96 06/30/21 00:47 96 06/30/21 00:00 88 24 118/74 94 L 06/29/21 23:00 95 H 25 H 122/69 96 06/29/21 22:00 95 H 26 H 120/67 95 06/29/21 21:00 99.1 F 91 H 20 152/41 95 06/29/21 20:00 95 H 20 142/67 95 06/29/21 19:54 94 H 139/71 95 06/29/21 18:53 100.1 F 100 H 18 159/82 96 General Appearance: no apparent distress, alert Neurologic Exam: alert, oriented x 3, cooperative, normal mood/affect, nml cerebellar function, nml station & gait, sensation nml, No motor deficits Eye Exam: PERRL/EOMI, eyes nml inspection Ears, Nose, Throat Exam: normal ENT inspection, TMs normal, pharynx normal, moist mucous membranes Neck Exam: normal inspection, non-tender, supple, full range of motion Respiratory Exam: normal breath sounds, lungs clear, No respiratory distress Cardiovascular Exam: regular rate/rhythm, normal heart sounds, normal peripheral pulses Gastrointestinal/Abdomen Exam: soft, normal bowel sounds, No tenderness, No mass Back Exam: normal inspection, normal range of motion, No CVA tenderness, No vertebral tenderness Extremity Exam: normal inspection, normal range of motion, pelvis stable Skin Exam: normal color, warm, dry, No rash Lymphatic Exam: No adenopathy Results - Labs Lab/Micro Results: Lab Results-Last 24 Hours 06/29/21 06/29/21 06/29/21 Range/Units 19:11 19:20 19:20 WBC 16.0 H (4.0-10.5) K/mm3 RBC 4.85 (4.1-5.6) M/mm3 Hgb 15.0 (12.5-18.0) gm/dl Hct 45.6 (42-50) % MCV 94.0 (78-100) fl MCH 30.9 (26-32) pg MCHC 32.9 (32-36) g/dl RDW 13.7 (11.5-14.0) % Plt Count 136 L (150-450) K/mm3 MPV 9.9 (7.5-11.0) fl Gran % 83.8 H (36.0-66.0) % Eos # (Auto) 0.01 (0-0.5) Absolute Lymphs (auto) 1.34 (1.0-4.6) Absolute Monos (auto) 1.21 (0.0-1.3) Lymphocytes % 8.4 L (24.0-44.0) % Monocytes % 7.6 (0.0-12.0) % Eosinophils % 0.1 (0.00-5.0) % Basophils % 0.1 (0.0-0.4) % Absolute Granulocytes 13.39 H (1.4-6.9) Basophils # 0.02 (0-0.4) Sodium 135 L (137-145) mmol/L Potassium 4.5 (3.5-5.1) mmol/L Chloride 104 (98-107) mmol/L Carbon Dioxide 15 L* (22-30) mmol/L Anion Gap 20.5 H (5-15) MEQ/L BUN 28 H (9-20) mg/dL Creatinine 0.91 (0.66-1.25) mg/dL Estimated GFR > 60.0 ML/MIN Glucose 178 H (74-106) mg/dL POC Glucometer (74 to 106) mg/dL Calcium 9.0 (8.4-10.2) mg/dL Magnesium (1.6-2.3) mg/dL Total Bilirubin 1.10 (0.2-1.3) mg/dL AST 27 (17-59) U/L ALT 15 (0-50) U/L Alkaline Phosphatase 75 (38-126) U/L Creatine Kinase (55-170) U/L Troponin I (0.000-0.034) ng/mL NT-Pro-B Natriuret Pep (0-1800) pg/mL Serum Total Protein 7.5 (6.3-8.2) g/dL Albumin 4.2 (3.5-5.0) g/dL Triglycerides (30-150) mg/dL Cholesterol (50-200) mg/dL LDL Cholesterol (30-100) mg/dL HDL Cholesterol (40-60) mg/dL Heart Disease Risk Ratio Lipase 13 L (23-300) U/L Urinalys Dipstick Clnc MAIN LAB Urine Color YELLOW (YELLOW) Urine Appearance CLEAR (CLEAR) Urine pH 5.5 (5-6) Ur Specific [place] 1.020 (1.005-1.025) POC Urine Protein Conf TRACE (Negative) Urine Ketones MODERATE-40 (NEGATIVE) Urine Nitrite NEGATIVE (NEGATIVE) Urine Bilirubin NEGATIVE (NEGATIVE) Urine Urobilinogen 0.2 (0-1) mg/dL Urine Leukocytes NEGATIVE (NEGATIVE) Urine WBC (Auto) NONE (0-5) /HPF Urine RBC (Auto) NONE (0-2) /HPF U Epithel Cells (Auto) NONE (FEW) /HPF Urine Bacteria (Auto) NONE (NEGATIVE) /HPF Urine RBC SMALL (0-5) Lucas/ul Urine Mucus (Auto) SLIGHT (NEGATIVE) /HPF Ur Culture Indicated? NO Urine Glucose 500 (NEGATIVE) mg/dL Influenza Type A Ag (NEGATIVE) Influenza Type B Ag (NEGATIVE) RSV (PCR) (Negative) SARS-CoV-2 (PCR) (NEGATIVE) 06/29/21 06/29/21 06/29/21 Range/Units 19:20 19:20 21:30 WBC (4.0-10.5) K/mm3 RBC (4.1-5.6) M/mm3 Hgb (12.5-18.0) gm/dl Hct (42-50) % MCV (78-100) fl MCH (26-32) pg MCHC (32-36) g/dl RDW (11.5-14.0) % Plt Count (150-450) K/mm3 MPV (7.5-11.0) fl Gran % (36.0-66.0) % Eos # (Auto) (0-0.5) Absolute Lymphs (auto) (1.0-4.6) Absolute Monos (auto) (0.0-1.3) Lymphocytes % (24.0-44.0) % Monocytes % (0.0-12.0) % Eosinophils % (0.00-5.0) % Basophils % (0.0-0.4) % Absolute Granulocytes (1.4-6.9) Basophils # (0-0.4) Sodium (137-145) mmol/L Potassium (3.5-5.1) mmol/L Chloride (98-107) mmol/L Carbon Dioxide (22-30) mmol/L Anion Gap (5-15) MEQ/L BUN (9-20) mg/dL Creatinine (0.66-1.25) mg/dL Estimated GFR ML/MIN Glucose (74-106) mg/dL POC Glucometer (74 to 106) mg/dL Calcium (8.4-10.2) mg/dL Magnesium 2.7 H (1.6-2.3) mg/dL Total Bilirubin (0.2-1.3) mg/dL AST (17-59) U/L ALT (0-50) U/L Alkaline Phosphatase (38-126) U/L Creatine Kinase 141 (55-170) U/L Troponin I 0.066 H* (0.000-0.034) ng/mL NT-Pro-B Natriuret Pep 4570 H (0-1800) pg/mL Serum Total Protein (6.3-8.2) g/dL Albumin (3.5-5.0) g/dL Triglycerides (30-150) mg/dL Cholesterol (50-200) mg/dL LDL Cholesterol (30-100) mg/dL HDL Cholesterol (40-60) mg/dL Heart Disease Risk Ratio Lipase (23-300) U/L Urinalys Dipstick Clnc Urine Color (YELLOW) Urine Appearance (CLEAR) Urine pH (5-6) Ur Specific [place] (1.005-1.025) POC Urine Protein Conf (Negative) Urine Ketones (NEGATIVE) Urine Nitrite (NEGATIVE) Urine Bilirubin (NEGATIVE) Urine Urobilinogen (0-1) mg/dL Urine Leukocytes (NEGATIVE) Urine WBC (Auto) (0-5) /HPF Urine RBC (Auto) (0-2) /HPF U Epithel Cells (Auto) (FEW) /HPF Urine Bacteria (Auto) (NEGATIVE) /HPF Urine RBC (0-5) Lucas/ul Urine Mucus (Auto) (NEGATIVE) /HPF Ur Culture Indicated? Urine Glucose (NEGATIVE) mg/dL Influenza Type A Ag NEGATIVE (NEGATIVE) Influenza Type B Ag NEGATIVE (NEGATIVE) RSV (PCR) NEGATIVE (Negative) SARS-CoV-2 (PCR) NEGATIVE (NEGATIVE) 06/29/21 06/30/21 06/30/21 Range/Units 22:25 01:11 02:43 WBC (4.0-10.5) K/mm3 RBC (4.1-5.6) M/mm3 Hgb (12.5-18.0) gm/dl Hct (42-50) % MCV (78-100) fl MCH (26-32) pg MCHC (32-36) g/dl RDW (11.5-14.0) % Plt Count (150-450) K/mm3 MPV (7.5-11.0) fl Gran % (36.0-66.0) % Eos # (Auto) (0-0.5) Absolute Lymphs (auto) (1.0-4.6) Absolute Monos (auto) (0.0-1.3) Lymphocytes % (24.0-44.0) % Monocytes % (0.0-12.0) % Eosinophils % (0.00-5.0) % Basophils % (0.0-0.4) % Absolute Granulocytes (1.4-6.9) Basophils # (0-0.4) Sodium (137-145) mmol/L Potassium (3.5-5.1) mmol/L Chloride (98-107) mmol/L Carbon Dioxide (22-30) mmol/L Anion Gap (5-15) MEQ/L BUN (9-20) mg/dL Creatinine (0.66-1.25) mg/dL Estimated GFR ML/MIN Glucose (74-106) mg/dL POC Glucometer 156 H (74 to 106) mg/dL Calcium (8.4-10.2) mg/dL Magnesium (1.6-2.3) mg/dL Total Bilirubin (0.2-1.3) mg/dL AST (17-59) U/L ALT (0-50) U/L Alkaline Phosphatase (38-126) U/L Creatine Kinase (55-170) U/L Troponin I 0.128 H* 0.368 H* (0.000-0.034) ng/mL NT-Pro-B Natriuret Pep (0-1800) pg/mL Serum Total Protein (6.3-8.2) g/dL Albumin (3.5-5.0) g/dL Triglycerides (30-150) mg/dL Cholesterol (50-200) mg/dL LDL Cholesterol (30-100) mg/dL HDL Cholesterol (40-60) mg/dL Heart Disease Risk Ratio Lipase (23-300) U/L Urinalys Dipstick Clnc Urine Color (YELLOW) Urine Appearance (CLEAR) Urine pH (5-6) Ur Specific [place] (1.005-1.025) POC Urine Protein Conf (Negative) Urine Ketones (NEGATIVE) Urine Nitrite (NEGATIVE) Urine Bilirubin (NEGATIVE) Urine Urobilinogen (0-1) mg/dL Urine Leukocytes (NEGATIVE) Urine WBC (Auto) (0-5) /HPF Urine RBC (Auto) (0-2) /HPF U Epithel Cells (Auto) (FEW) /HPF Urine Bacteria (Auto) (NEGATIVE) /HPF Urine RBC (0-5) Lucas/ul Urine Mucus (Auto) (NEGATIVE) /HPF Ur Culture Indicated? Urine Glucose (NEGATIVE) mg/dL Influenza Type A Ag (NEGATIVE) Influenza Type B Ag (NEGATIVE) RSV (PCR) (Negative) SARS-CoV-2 (PCR) (NEGATIVE) 06/30/21 06/30/21 06/30/21 Range/Units 04:30 04:30 04:30 WBC 14.9 H (4.0-10.5) K/mm3 RBC 4.64 (4.1-5.6) M/mm3 Hgb 14.4 (12.5-18.0) gm/dl Hct 43.5 (42-50) % MCV 93.8 (78-100) fl MCH 31.0 (26-32) pg MCHC 33.1 (32-36) g/dl RDW 13.7 (11.5-14.0) % Plt Count 124 L (150-450) K/mm3 MPV 9.6 (7.5-11.0) fl Gran % 82.3 H (36.0-66.0) % Eos # (Auto) 0 (0-0.5) Absolute Lymphs (auto) 1.29 (1.0-4.6) Absolute Monos (auto) 1.35 H (0.0-1.3) Lymphocytes % 8.6 L (24.0-44.0) % Monocytes % 9.0 (0.0-12.0) % Eosinophils % 0.0 (0.00-5.0) % Basophils % 0.1 (0.0-0.4) % Absolute Granulocytes 12.26 H (1.4-6.9) Basophils # 0.02 (0-0.4) Sodium 137 (137-145) mmol/L Potassium 4.3 (3.5-5.1) mmol/L Chloride 108 H (98-107) mmol/L Carbon Dioxide 16 L* (22-30) mmol/L Anion Gap 17.3 H (5-15) MEQ/L BUN 29 H (9-20) mg/dL Creatinine 0.88 (0.66-1.25) mg/dL Estimated GFR > 60.0 ML/MIN Glucose 139 H (74-106) mg/dL POC Glucometer (74 to 106) mg/dL Calcium 8.7 (8.4-10.2) mg/dL Magnesium (1.6-2.3) mg/dL Total Bilirubin 0.90 (0.2-1.3) mg/dL AST 31 (17-59) U/L ALT 14 (0-50) U/L Alkaline Phosphatase 59 (38-126) U/L Creatine Kinase (55-170) U/L Troponin I 1.120 H* (0.000-0.034) ng/mL NT-Pro-B Natriuret Pep (0-1800) pg/mL Serum Total Protein 6.7 (6.3-8.2) g/dL Albumin 3.6 (3.5-5.0) g/dL Triglycerides (30-150) mg/dL Cholesterol (50-200) mg/dL LDL Cholesterol (30-100) mg/dL HDL Cholesterol (40-60) mg/dL Heart Disease Risk Ratio Lipase (23-300) U/L Urinalys Dipstick Clnc Urine Color (YELLOW) Urine Appearance (CLEAR) Urine pH (5-6) Ur Specific [place] (1.005-1.025) POC Urine Protein Conf (Negative) Urine Ketones (NEGATIVE) Urine Nitrite (NEGATIVE) Urine Bilirubin (NEGATIVE) Urine Urobilinogen (0-1) mg/dL Urine Leukocytes (NEGATIVE) Urine WBC (Auto) (0-5) /HPF Urine RBC (Auto) (0-2) /HPF U Epithel Cells (Auto) (FEW) /HPF Urine Bacteria (Auto) (NEGATIVE) /HPF Urine RBC (0-5) Lucas/ul Urine Mucus (Auto) (NEGATIVE) /HPF Ur Culture Indicated? Urine Glucose (NEGATIVE) mg/dL Influenza Type A Ag (NEGATIVE) Influenza Type B Ag (NEGATIVE) RSV (PCR) (Negative) SARS-CoV-2 (PCR) (NEGATIVE) 06/30/21 06/30/21 06/30/21 Range/Units 04:30 07:07 07:40 WBC (4.0-10.5) K/mm3 RBC (4.1-5.6) M/mm3 Hgb (12.5-18.0) gm/dl Hct (42-50) % MCV (78-100) fl MCH (26-32) pg MCHC (32-36) g/dl RDW (11.5-14.0) % Plt Count (150-450) K/mm3 MPV (7.5-11.0) fl Gran % (36.0-66.0) % Eos # (Auto) (0-0.5) Absolute Lymphs (auto) (1.0-4.6) Absolute Monos (auto) (0.0-1.3) Lymphocytes % (24.0-44.0) % Monocytes % (0.0-12.0) % Eosinophils % (0.00-5.0) % Basophils % (0.0-0.4) % Absolute Granulocytes (1.4-6.9) Basophils # (0-0.4) Sodium (137-145) mmol/L Potassium (3.5-5.1) mmol/L Chloride (98-107) mmol/L Carbon Dioxide (22-30) mmol/L Anion Gap (5-15) MEQ/L BUN (9-20) mg/dL Creatinine (0.66-1.25) mg/dL Estimated GFR ML/MIN Glucose (74-106) mg/dL POC Glucometer 122 H (74 to 106) mg/dL Calcium (8.4-10.2) mg/dL Magnesium (1.6-2.3) mg/dL Total Bilirubin (0.2-1.3) mg/dL AST (17-59) U/L ALT (0-50) U/L Alkaline Phosphatase (38-126) U/L Creatine Kinase (55-170) U/L Troponin I 1.240 H* (0.000-0.034) ng/mL NT-Pro-B Natriuret Pep (0-1800) pg/mL Serum Total Protein (6.3-8.2) g/dL Albumin (3.5-5.0) g/dL Triglycerides 87 (30-150) mg/dL Cholesterol 101 (50-200) mg/dL LDL Cholesterol 57 (30-100) mg/dL HDL Cholesterol 21 L (40-60) mg/dL Heart Disease Risk Ratio 4.8 Lipase (23-300) U/L Urinalys Dipstick Clnc Urine Color (YELLOW) Urine Appearance (CLEAR) Urine pH (5-6) Ur Specific [place] (1.005-1.025) POC Urine Protein Conf (Negative) Urine Ketones (NEGATIVE) Urine Nitrite (NEGATIVE) Urine Bilirubin (NEGATIVE) Urine Urobilinogen (0-1) mg/dL Urine Leukocytes (NEGATIVE) Urine WBC (Auto) (0-5) /HPF Urine RBC (Auto) (0-2) /HPF U Epithel Cells (Auto) (FEW) /HPF Urine Bacteria (Auto) (NEGATIVE) /HPF Urine RBC (0-5) Lucas/ul Urine Mucus (Auto) (NEGATIVE) /HPF Ur Culture Indicated? Urine Glucose (NEGATIVE) mg/dL Influenza Type A Ag (NEGATIVE) Influenza Type B Ag (NEGATIVE) RSV (PCR) (Negative) SARS-CoV-2 (PCR) (NEGATIVE) 06/30/21 Range/Units 11:25 WBC (4.0-10.5) K/mm3 RBC (4.1-5.6) M/mm3 Hgb (12.5-18.0) gm/dl Hct (42-50) % MCV (78-100) fl MCH (26-32) pg MCHC (32-36) g/dl RDW (11.5-14.0) % Plt Count (150-450) K/mm3 MPV (7.5-11.0) fl Gran % (36.0-66.0) % Eos # (Auto) (0-0.5) Absolute Lymphs (auto) (1.0-4.6) Absolute Monos (auto) (0.0-1.3) Lymphocytes % (24.0-44.0) % Monocytes % (0.0-12.0) % Eosinophils % (0.00-5.0) % Basophils % (0.0-0.4) % Absolute Granulocytes (1.4-6.9) Basophils # (0-0.4) Sodium (137-145) mmol/L Potassium (3.5-5.1) mmol/L Chloride (98-107) mmol/L Carbon Dioxide (22-30) mmol/L Anion Gap (5-15) MEQ/L BUN (9-20) mg/dL Creatinine (0.66-1.25) mg/dL Estimated GFR ML/MIN Glucose (74-106) mg/dL POC Glucometer 154 H (74 to 106) mg/dL Calcium (8.4-10.2) mg/dL Magnesium (1.6-2.3) mg/dL Total Bilirubin (0.2-1.3) mg/dL AST (17-59) U/L ALT (0-50) U/L Alkaline Phosphatase (38-126) U/L Creatine Kinase (55-170) U/L Troponin I (0.000-0.034) ng/mL NT-Pro-B Natriuret Pep (0-1800) pg/mL Serum Total Protein (6.3-8.2) g/dL Albumin (3.5-5.0) g/dL Triglycerides (30-150) mg/dL Cholesterol (50-200) mg/dL LDL Cholesterol (30-100) mg/dL HDL Cholesterol (40-60) mg/dL Heart Disease Risk Ratio Lipase (23-300) U/L Urinalys Dipstick Clnc Urine Color (YELLOW) Urine Appearance (CLEAR) Urine pH (5-6) Ur Specific [place] (1.005-1.025) POC Urine Protein Conf (Negative) Urine Ketones (NEGATIVE) Urine Nitrite (NEGATIVE) Urine Bilirubin (NEGATIVE) Urine Urobilinogen (0-1) mg/dL Urine Leukocytes (NEGATIVE) Urine WBC (Auto) (0-5) /HPF Urine RBC (Auto) (0-2) /HPF U Epithel Cells (Auto) (FEW) /HPF Urine Bacteria (Auto) (NEGATIVE) /HPF Urine RBC (0-5) Lucas/ul Urine Mucus (Auto) (NEGATIVE) /HPF Ur Culture Indicated? Urine Glucose (NEGATIVE) mg/dL Influenza Type A Ag (NEGATIVE) Influenza Type B Ag (NEGATIVE) RSV (PCR) (Negative) SARS-CoV-2 (PCR) (NEGATIVE) Accuchecks Date 06/30/21 Time 07:39 - Radiology Impressions Radiology Exams & Impressions: Radiology Procedures Category Date Time Status CERVICAL SPINE WO CONTRAST [CT] Stat Exams 06/29/21 19:11 Completed CHEST 1 VIEW (PORTABLE) Stat Exams 06/29/21 19:11 Completed ECHO W/2D AND DOPPLER [US] Routine Exams 06/30/21 09:09 Taken HEAD WITHOUT CONTRAST [CT] Stat Exams 06/29/21 19:11 Completed Assessment/Plan (1) NSTEMI (non-ST elevated myocardial infarction) Current Visit: Yes Status: Acute Assessment & Plan: Chief Complaint Diagnosis Generalized weakness, fall, dehydration Allergies Allergy/AdvReac Type Severity Reaction Status Date / Time No Known Drug Allergies Allergy Verified 06/29/21 19:05 Vital Signs (Last 24 hours) Temp Pulse Resp BP Pulse Ox 06/30/21 11:42 97.4 F 110 H 16 139/74 97 06/30/21 07:30 97.3 F 78 16 125/63 96 06/30/21 04:05 96 H 20 96 06/30/21 02:29 97.5 F 95 H 22 116/60 95 06/30/21 01:00 88 24 109/61 96 06/30/21 00:47 96 06/30/21 00:00 88 24 118/74 94 L 06/29/21 23:00 95 H 25 H 122/69 96 06/29/21 22:00 95 H 26 H 120/67 95 06/29/21 21:00 99.1 F 91 H 20 152/41 95 06/29/21 20:00 95 H 20 142/67 95 06/29/21 19:54 94 H 139/71 95 06/29/21 18:53 100.1 F 100 H 18 159/82 96 Home Medications Medication Instructions Recorded Confirmed Last Taken Type Dabigatran Etexilate Mesylate 1 ea PO BID 06/29/21 06/30/21 1 Day Ago History [Pradaxa] ~06/29/21 150 mg Donepezil HCl [Aricept] 5 mg PO HS 06/29/21 06/30/21 2 Days Ago History ~06/28/21 5 mg Empagliflozin [Jardiance] 25 mg PO DAILY 06/29/21 06/30/21 1 Day Ago History ~06/29/21 25 mg Glimepiride 4 mg [Amaryl 4 4 mg PO BID 06/29/21 06/30/21 1 Day Ago History mg] ~06/29/21 4 mg Pravastatin Sodium 1 ea PO DAILY 06/29/21 06/30/21 1 Day Ago History ~06/29/21 1 tab Spironolactone 25 mg [Aldactone 25 mg PO DAILY 06/29/21 06/30/21 1 Day Ago History 25 MG] ~06/29/21 25 mg Tamsulosin HCl 0.4 mg [Flomax 1 ea PO DAILY 06/29/21 06/30/21 1 Day Ago History 0.4 MG] ~06/29/21 4 mg Aspirin [Aspirin EC] 81 mg PO DAILY 06/30/21 06/30/21 1 Day Ago History ~06/29/21 81 mg Isosorbide Mononitrate 30 mg 30 mg PO DAILY 06/30/21 06/30/21 1 Day Ago History [Imdur 30 MG] ~06/29/21 30 mg Metformin HCl 500 mg 1,000 mg PO BIDWM 06/30/21 06/30/21 1 Day Ago History [Glucophage 500 MG] ~06/29/21 1000 mg Metoprolol Tartrate 25 mg 25 mg PO BID 06/30/21 06/30/21 1 Day Ago History [Lopressor 25MG Tab] ~06/29/21 25 mg Current Medications Generic Name Dose Route Start Last Admin Trade Name Freq PRN Reason Stop Dose Admin Acetaminophen 650 mg 06/30/21 01:36 Acetaminophen 325 Mg Tablet PO 07/30/21 01:35 Q4H PRN PRN PAIN AND/OR FEVER Albuterol/Ipratropium 3 ml 06/30/21 01:36 Ipratropium/Albuterol Sulfate 3 Ml Ampul.Neb IH 07/30/21 01:35 Q4HPRN PRN SHORTNESS OF BREATH/WHEEZING Aspirin 81 mg 06/30/21 10:00 06/30/21 09:37 Aspirin 81 Mg Tablet.Ec PO 07/30/21 09:59 81 mg DAILY MIRTHA Administration Dabigatran 150 mg 06/30/21 10:00 06/30/21 09:37 Dabigatran Etexilate Mesylate 75 Mg Capsule PO 07/30/21 09:59 150 mg BID MIRTHA Administration Donepezil HCl 5 mg 06/30/21 22:00 Donepezil Hcl 10 Mg Tablet PO 07/30/21 21:59 HS MIRTHA Empagliflozin 25 mg 06/30/21 10:00 06/30/21 09:37 Empagliflozin 10 Mg Tablet PO 07/30/21 09:59 25 mg DAILY MIRTHA Administration Glimepiride 4 mg 06/30/21 08:00 06/30/21 08:45 Glimepiride 4 Mg Tablet PO 07/30/21 07:59 4 mg BIDWM MIRTHA Administration Sodium Chloride 1,000 mls @ 100 mls/hr 06/30/21 01:36 06/30/21 13:47 Sodium Chloride 0.9% 1000 Ml IV 07/30/21 01:35 100 mls/hr .Q10H MIRTHA Administration Insulin Human Lispro 0 unit 06/30/21 01:36 Insulin Lispro 1 Unit SQ 07/30/21 01:35 UD PRN HYPERGLYCEMIA Isosorbide Mononitrate 30 mg 06/30/21 10:00 06/30/21 09:37 Isosorbide Mononitrate 30 Mg Tab PO 07/30/21 09:59 30 mg DAILY MIRTHA Administration Metformin HCl 1,000 mg 06/30/21 08:00 06/30/21 08:45 Metformin Hcl 500 Mg Tablet PO 07/30/21 07:59 1,000 mg BIDWM MIRTHA Administration Metoprolol Tartrate 25 mg 06/30/21 10:00 06/30/21 09:37 Metoprolol Tartrate 25 Mg Tab PO 07/30/21 09:59 25 mg BID MIRTHA Administration Pantoprazole Sodium 40 mg 06/30/21 10:00 06/30/21 09:37 Pantoprazole 40 Mg Vial IV 07/30/21 09:59 40 mg Q24H10 MIRTHA Administration Simvastatin 40 mg 06/30/21 10:00 06/30/21 09:37 Simvastatin 20 Mg Tablet PO 07/30/21 09:59 40 mg DAILY MIRTHA Administration Spironolactone 25 mg 06/30/21 10:00 06/30/21 09:37 Spironolactone 25 Mg Tablet PO 07/30/21 09:59 25 mg DAILY MIRTHA Administration Tamsulosin HCl 0.4 mg 06/30/21 10:00 06/30/21 09:37 Tamsulosin Hcl 0.4 Mg Cap PO 07/30/21 09:59 0.4 mg DAILY MIRTHA Administration Discontinued Medications Generic Name Dose Route Start Last Admin Trade Name Freq PRN Reason Stop Dose Admin Aspirin 324 mg 06/29/21 23:49 06/29/21 23:52 Aspirin 81 Mg Tab.Chew PO 06/29/21 23:50 324 mg STAT ONE Administration Magnesium Sulfate/Dextrose Confirm 06/29/21 19:05 Magnesium 1 Gm / 100 Ml D5w Administered 06/29/21 19:06 Dose 100 mls @ ud IV .STK-MED ONE Magnesium Sulfate/Dextrose 100 mls @ 100 mls/hr 06/29/21 19:15 06/29/21 19:48 Magnesium 1 Gm / 100 Ml D5w IV 06/29/21 21:14 100 mls/hr Q1H MIRTHA Administration Sodium Chloride 1,000 mls @ 999 mls/hr 06/29/21 19:11 06/29/21 21:21 Sodium Chloride 0.9% 1000 Ml IV 06/29/21 20:11 Infused .Q1H1M STA Infusion Sodium Chloride Confirm 06/29/21 19:46 Sodium Chloride 0.9% 1000 Ml Administered 06/29/21 19:47 Dose 1,000 mls @ ud .ROUTE .STK-MED ONE Intake & Output (Last 24 hours) 06/28/21 06/29/21 06/30/21 07/01/21 11:59 11:59 11:59 11:59 Intake Total 360 240 Output Total 400 Balance -40 240 Weight 74.8 kg Microbiology Results (Last 24 hours) 06/29/21 20:00 Blood Blood Culture Gram Stain - Pending 06/29/21 20:00 Blood Blood Culture - Pending 06/29/21 19:20 Blood Blood Culture Gram Stain - Pending 06/29/21 19:20 Blood Blood Culture - Pending Laboratory Results (Last 24 hours) 06/30/21 06/30/21 06/30/21 11:25 07:40 07:07 WBC RBC Hgb Hct MCV MCH MCHC RDW Plt Count MPV Gran % Eos # (Auto) Absolute Lymphs (auto) Absolute Monos (auto) Lymphocytes % Monocytes % Eosinophils % Basophils % Absolute Granulocytes Basophils # Sodium Potassium Chloride Carbon Dioxide Anion Gap BUN Creatinine Estimated GFR Glucose POC Glucometer 154 H 122 H Calcium Magnesium Total Bilirubin AST ALT Alkaline Phosphatase Creatine Kinase Troponin I 1.240 H* NT-Pro-B Natriuret Pep Serum Total Protein Albumin Triglycerides Cholesterol LDL Cholesterol HDL Cholesterol Heart Disease Risk Ratio Lipase Urinalys Dipstick Clnc Urine Color Urine Appearance Urine pH Ur Specific [place] POC Urine Protein Conf Urine Ketones Urine Nitrite Urine Bilirubin Urine Urobilinogen Urine Leukocytes Urine WBC (Auto) Urine RBC (Auto) U Epithel Cells (Auto) Urine Bacteria (Auto) Urine RBC Urine Mucus (Auto) Ur Culture Indicated? Urine Glucose Influenza Type A Ag Influenza Type B Ag RSV (PCR) SARS-CoV-2 (PCR) 06/30/21 06/30/21 06/30/21 04:30 04:30 04:30 WBC 14.9 H RBC 4.64 Hgb 14.4 Hct 43.5 MCV 93.8 MCH 31.0 MCHC 33.1 RDW 13.7 Plt Count 124 L MPV 9.6 Gran % 82.3 H Eos # (Auto) 0 Absolute Lymphs (auto) 1.29 Absolute Monos (auto) 1.35 H Lymphocytes % 8.6 L Monocytes % 9.0 Eosinophils % 0.0 Basophils % 0.1 Absolute Granulocytes 12.26 H Basophils # 0.02 Sodium 137 Potassium 4.3 Chloride 108 H Carbon Dioxide 16 L* Anion Gap 17.3 H BUN 29 H Creatinine 0.88 Estimated GFR > 60.0 Glucose 139 H POC Glucometer Calcium 8.7 Magnesium Total Bilirubin 0.90 AST 31 ALT 14 Alkaline Phosphatase 59 Creatine Kinase Troponin I NT-Pro-B Natriuret Pep Serum Total Protein 6.7 Albumin 3.6 Triglycerides 87 Cholesterol 101 LDL Cholesterol 57 HDL Cholesterol 21 L Heart Disease Risk Ratio 4.8 Lipase Urinalys Dipstick Clnc Urine Color Urine Appearance Urine pH Ur Specific [place] POC Urine Protein Conf Urine Ketones Urine Nitrite Urine Bilirubin Urine Urobilinogen Urine Leukocytes Urine WBC (Auto) Urine RBC (Auto) U Epithel Cells (Auto) Urine Bacteria (Auto) Urine RBC Urine Mucus (Auto) Ur Culture Indicated? Urine Glucose Influenza Type A Ag Influenza Type B Ag RSV (PCR) SARS-CoV-2 (PCR) 06/30/21 06/30/21 06/30/21 04:30 02:43 01:11 WBC RBC Hgb Hct MCV MCH MCHC RDW Plt Count MPV Gran % Eos # (Auto) Absolute Lymphs (auto) Absolute Monos (auto) Lymphocytes % Monocytes % Eosinophils % Basophils % Absolute Granulocytes Basophils # Sodium Potassium Chloride Carbon Dioxide Anion Gap BUN Creatinine Estimated GFR Glucose POC Glucometer 156 H Calcium Magnesium Total Bilirubin AST ALT Alkaline Phosphatase Creatine Kinase Troponin I 1.120 H* 0.368 H* NT-Pro-B Natriuret Pep Serum Total Protein Albumin Triglycerides Cholesterol LDL Cholesterol HDL Cholesterol Heart Disease Risk Ratio Lipase Urinalys Dipstick Clnc Urine Color Urine Appearance Urine pH Ur Specific [place] POC Urine Protein Conf Urine Ketones Urine Nitrite Urine Bilirubin Urine Urobilinogen Urine Leukocytes Urine WBC (Auto) Urine RBC (Auto) U Epithel Cells (Auto) Urine Bacteria (Auto) Urine RBC Urine Mucus (Auto) Ur Culture Indicated? Urine Glucose Influenza Type A Ag Influenza Type B Ag RSV (PCR) SARS-CoV-2 (PCR) 06/29/21 06/29/21 06/29/21 22:25 21:30 19:20 WBC RBC Hgb Hct MCV MCH MCHC RDW Plt Count MPV Gran % Eos # (Auto) Absolute Lymphs (auto) Absolute Monos (auto) Lymphocytes % Monocytes % Eosinophils % Basophils % Absolute Granulocytes Basophils # Sodium Potassium Chloride Carbon Dioxide Anion Gap BUN Creatinine Estimated GFR Glucose POC Glucometer Calcium Magnesium Total Bilirubin AST ALT Alkaline Phosphatase Creatine Kinase Troponin I 0.128 H* 0.066 H* NT-Pro-B Natriuret Pep Serum Total Protein Albumin Triglycerides Cholesterol LDL Cholesterol HDL Cholesterol Heart Disease Risk Ratio Lipase Urinalys Dipstick Clnc Urine Color Urine Appearance Urine pH Ur Specific [place] POC Urine Protein Conf Urine Ketones Urine Nitrite Urine Bilirubin Urine Urobilinogen Urine Leukocytes Urine WBC (Auto) Urine RBC (Auto) U Epithel Cells (Auto) Urine Bacteria (Auto) Urine RBC Urine Mucus (Auto) Ur Culture Indicated? Urine Glucose Influenza Type A Ag NEGATIVE Influenza Type B Ag NEGATIVE RSV (PCR) NEGATIVE SARS-CoV-2 (PCR) NEGATIVE 06/29/21 06/29/21 06/29/21 19:20 19:20 19:20 WBC 16.0 H RBC 4.85 Hgb 15.0 Hct 45.6 MCV 94.0 MCH 30.9 MCHC 32.9 RDW 13.7 Plt Count 136 L MPV 9.9 Gran % 83.8 H Eos # (Auto) 0.01 Absolute Lymphs (auto) 1.34 Absolute Monos (auto) 1.21 Lymphocytes % 8.4 L Monocytes % 7.6 Eosinophils % 0.1 Basophils % 0.1 Absolute Granulocytes 13.39 H Basophils # 0.02 Sodium 135 L Potassium 4.5 Chloride 104 Carbon Dioxide 15 L* Anion Gap 20.5 H BUN 28 H Creatinine 0.91 Estimated GFR > 60.0 Glucose 178 H POC Glucometer Calcium 9.0 Magnesium 2.7 H Total Bilirubin 1.10 AST 27 ALT 15 Alkaline Phosphatase 75 Creatine Kinase 141 Troponin I NT-Pro-B Natriuret Pep 4570 H Serum Total Protein 7.5 Albumin 4.2 Triglycerides Cholesterol LDL Cholesterol HDL Cholesterol Heart Disease Risk Ratio Lipase 13 L Urinalys Dipstick Clnc Urine Color Urine Appearance Urine pH Ur Specific [place] POC Urine Protein Conf Urine Ketones Urine Nitrite Urine Bilirubin Urine Urobilinogen Urine Leukocytes Urine WBC (Auto) Urine RBC (Auto) U Epithel Cells (Auto) Urine Bacteria (Auto) Urine RBC Urine Mucus (Auto) Ur Culture Indicated? Urine Glucose Influenza Type A Ag Influenza Type B Ag RSV (PCR) SARS-CoV-2 (PCR) 06/29/21 19:11 WBC RBC Hgb Hct MCV MCH MCHC RDW Plt Count MPV Gran % Eos # (Auto) Absolute Lymphs (auto) Absolute Monos (auto) Lymphocytes % Monocytes % Eosinophils % Basophils % Absolute Granulocytes Basophils # Sodium Potassium Chloride Carbon Dioxide Anion Gap BUN Creatinine Estimated GFR Glucose POC Glucometer Calcium Magnesium Total Bilirubin AST ALT Alkaline Phosphatase Creatine Kinase Troponin I NT-Pro-B Natriuret Pep Serum Total Protein Albumin Triglycerides Cholesterol LDL Cholesterol HDL Cholesterol Heart Disease Risk Ratio Lipase Urinalys Dipstick Clnc MAIN LAB Urine Color YELLOW Urine Appearance CLEAR Urine pH 5.5 Ur Specific [place] 1.020 POC Urine Protein Conf TRACE Urine Ketones MODERATE-40 Urine Nitrite NEGATIVE Urine Bilirubin NEGATIVE Urine Urobilinogen 0.2 Urine Leukocytes NEGATIVE Urine WBC (Auto) NONE Urine RBC (Auto) NONE U Epithel Cells (Auto) NONE Urine Bacteria (Auto) NONE Urine RBC SMALL Urine Mucus (Auto) SLIGHT Ur Culture Indicated? NO Urine Glucose 500 Influenza Type A Ag Influenza Type B Ag RSV (PCR) SARS-CoV-2 (PCR) Orders (Last 24 hours) Category Date Time Status Bedrest ROUTINE Activity 06/30/21 01:36 Active Up With Assistance ROUTINE Activity 06/30/21 01:36 Active Code Status Order ROUTINE Care 06/30/21 01:36 Active EKG-ER Only STAT Care 06/29/21 19:11 Completed Fall Protocol Q1H Care 06/30/21 01:36 Active IV Care Q6H Care 06/30/21 01:36 Active IV Insertion STAT Care 06/29/21 19:11 Completed Miscellaneous Nursing Order ROUTINE Care 06/30/21 06:57 Active NPO (ED) STAT Care 06/29/21 19:11 Completed Neuro Checks Q4H Care 06/30/21 01:36 Active POCT Glucose Check ACHS Care 06/30/21 01:[address] in Observation ROUTINE Care 06/30/21 01:36 Active Tawny Preutt ROUTINE Care 06/30/21 01:36 Active Telemetry q6h Care 06/30/21 01:36 Active Weight,Daily 0600 Care 06/30/21 01:36 Active Consistent Carbohydrate Diet 1800 Calorie Diet 06/30/21 Breakfast Active Nutritional Admission Screen ONCE Diet 06/30/21 03:04 Active CERVICAL SPINE WO CONTRAST [CT] Stat Exams 06/29/21 19:11 Completed CHEST 1 VIEW (PORTABLE) Stat Exams 06/29/21 19:11 Completed ECHO W/2D AND DOPPLER [US] Routine Exams 06/30/21 09:09 Taken HEAD WITHOUT CONTRAST [CT] Stat Exams 06/29/21 19:11 Completed BLOOD CULTURE Stat Lab 06/29/21 20:00 Received BNP [NT PRO BNP] Stat Lab 06/29/21 19:20 Completed CBC AM.LAB Lab 07/01/21 04:00 Ordered CBC W DIFF AM.LAB Lab 06/30/21 04:30 Completed CBC W DIFF Stat Lab 06/29/21 19:20 Completed CK (IN-HOUSE) [CK-Creatinine Phosphokinase] Stat Lab 06/29/21 19:20 Completed CMP AM.LAB Lab 06/30/21 04:30 Completed CMP AM.LAB Lab 07/01/21 04:00 Ordered CMP Stat Lab 06/29/21 19:20 Completed COVID/FLU/RSV Panel Stat Lab 06/29/21 21:30 Completed LIPASE Stat Lab 06/29/21 19:20 Completed LIPID PROFILE Routine Lab 06/30/21 04:30 Completed MAG [MAGNESIUM] Routine Lab 07/01/21 04:00 Ordered MAG [MAGNESIUM] Stat Lab 06/29/21 19:20 Completed POCT GLUCOSE Stat Lab 06/30/21 02:43 Completed POCT GLUCOSE Stat Lab 06/30/21 07:07 Completed POCT GLUCOSE Stat Lab 06/30/21 11:25 Completed TROPONIN AM.LAB Lab 07/01/21 04:00 Ordered TROPONIN Q3H Lab 06/29/21 19:20 Completed TROPONIN Q3H Lab 06/29/21 22:25 Completed TROPONIN Q3H Lab 06/30/21 01:11 Completed TROPONIN Q3H Lab 06/30/21 04:30 Completed TROPONIN Q3H Lab 06/30/21 07:40 Completed TROPONIN Urgent Lab 06/30/21 17:00 Ordered Acetaminophen 325 mg [Tylenol 325 mg] Med 06/30/21 01:36 Active 650 mg PO Q4H PRN PRN Albuterol/Ipratropium 3ml Neb* [DUONEB 0.5-3 MG/3 ml Med 06/30/21 01:36 Active Neb] 3 ml IH Q4HPRN PRN Aspirin 81 gm Chew [Baby Aspirin 81 mg Chew] Med 06/29/21 23:49 Discontinued 324 mg PO STAT ONE Aspirin EC 81 mg [Ecotrin 81 mg] Med 06/30/21 10:00 Active 81 mg PO DAILY Dabigatran Etexilate 75 mg [Pradaxa 75 mg] Med 06/30/21 10:00 Active 150 mg PO BID Donepezil HCl 10 mg [Aricept 10 MG] Med 06/30/21 22:00 Active 5 mg PO HS Empagliflozin [Jardiance] Med 06/30/21 10:00 Active 25 mg PO DAILY Glimepiride 4 mg [Amaryl 4 mg] Med 06/30/21 08:00 Active 4 mg PO BIDWM Insulin Lispro [Humalog] Med 06/30/21 01:36 Active See Dose Instructions SQ UD PRN Isosorbide Mononitrate 30 mg [Imdur 30 MG] Med 06/30/21 10:00 Active 30 mg PO DAILY Magnesium Sulfate 1 gm/100 ml* [Magnesium 1 Gm / 100 Ml Med 06/29/21 19:15 Discontinued D5W] 100 ml IV Q1H Magnesium Sulfate 1 gm/100 ml* [Magnesium 1 Gm / 100 Ml Med 06/29/21 19:05 Discontinued D5W] 100 ml IV UD Metformin HCl 500 mg [Glucophage 500 MG] Med 06/30/21 08:00 Active 1,000 mg PO BIDWM Metoprolol Tartrate 25 mg [Lopressor 25MG Tab] Med 06/30/21 10:00 Active 25 mg PO BID NaCl 0.9% 1000 ml [Sodium Chloride 0.9% 1000 ML] 1,000 Med 06/29/21 19:46 Discontinued ml .ROUTE UD NaCl 0.9% 1000 ml [Sodium Chloride 0.9% 1000 ML] 1,000 Med 06/30/21 01:36 Active ml IV 100 mls/hr NaCl 0.9% 1000 ml [Sodium Chloride 0.9% 1000 ML] 1,000 Med 06/29/21 19:11 Discontinued ml IV 999 mls/hr Pantoprazole 40 mg [Protonix 40 mg IV] Med 06/30/21 10:00 Active 40 mg IV Q24H10 Simvastatin 20Mg [Zocor 20Mg] Med 06/30/21 10:00 Active 40 mg PO DAILY Spironolactone 25 mg [Aldactone 25 MG] Med 06/30/21 10:00 Active 25 mg PO DAILY Tamsulosin HCl 0.4 mg [Flomax 0.4 MG] Med 06/30/21 10:00 Active 0.4 mg PO DAILY PT Eval & Treat (MD Order) ONCE PT 06/30/21 13:20 Active Oxygen Nasal Cannula 2 lpm RT 06/30/21 01:36 Completed Pulse Oximetry .spot check RT 06/30/21 05:56 Completed Respiratory Therapy Assessment DAILY RT 06/30/21 05:[address] Screen per Nursing Assess ONCE ST 06/30/21 03:04 Active Patient Care Notes (Last 24 hours) 06/30/21 09:58 Nursing Note by NEGIN MARTINEZ DR. CALLED BACK AND TROPONIN REPORTED TO HIM. DR. 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 REPORTED TO HIM WHAT ER REPORT STATED ABOUT PT AND REFUSING TO GET TRANSFERRED. DR. DE LEON STATES THAT LONG HE HAS NO CHEST PAIN, NO RUNS OF V-TACH, AND MAG AND POT ARE NORMAL, HE IS OK WITH PT GOING HOME WHEN DR. RODRIGUEZ DISCHARGES AND TO MAKE APPT WITH DR. DE LEON FOR A DAY OR 2 AFTER DISCHARGE. WILL REPORT TO DR. RODRIGUEZ WHEN HE MAKES ROUNDS. Addendum entered by NEGIN MARTINEZ 06/30/21 11:35: DR. DE LEON ALSO WANTED PT TO GET OUT PATIENT STRESS TEST DONE. Initialized on 06/30/21 09:58 - END OF NOTE 06/30/21 09:[address] PHONED LAMINATING MACHINE TENDER FOR UPDATE ON PATIENT. REPORTED THAT WE HAVE PHONED SERVER PROGRAMMER DR ACEVEDO, WHO PATIENT FOLLOWS WITH AND AWAITING PHONE BACK. ORDERED LIPID PANEL AND ECHO. TELE CARDIOLOGY IF DR ACEVEDO DOES NOT RETURN PHONE CALL. Initialized on 06/30/21 09:07 - END OF NOTE 06/30/21 08:40 Nursing Note by NEGIN MARTINEZ DR.'S OFFICE CALLED AND INFORMED OF PT'S LATEST TROPONIN. OFFICE NURSE STATED SHE WOULD PAGE HIM TO LET HIM KNOW. 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 Dr De Leon. Initialized on 06/30/21 06:54 - END OF NOTE 06/30/21 06:30 (created 06/30/21 06:39) Nursing Note by Adrianne Modi Called Dr Rodriguez regarding pt CTNI results. 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 Initialized on 06/30/21 06:39 - END OF NOTE 06/30/21 02:55 SBAR Note by Adrianne Modi SITUATION I am calling about LISA DARDEN the patient's code status is The problem I am calling about is Called Dr Win with pt's CTINI results. No new orders received at this time. ASSESSMENT RECOMMENDATION Physician notified at 0255 New Orders received: Vital Signs (Last 4 hours) Pulse Resp BP Pulse Ox 06/30/21 01:00 88 24 109/61 96 06/30/21 00:47 96 06/30/21 00:00 88 24 118/74 94 L 06/29/21 23:00 95 H 25 H 122/69 96 Diagnois, Code Status Diagnosis Generalized weakness, fall, dehydration Intake and Output 12 Hours 06/29/21 06/30/21 18:59 06:59 Weight 81.9 kg Physical Assessment Skin Temperature Warm Pain Scale (Last 12 Hours) Pain Intensity 0 Pain Intensity 0 Pain Intensity 0 Pain Intensity 0 Pain Intensity 0 Pain Intensity 0 Pain Intensity 0 Pain Intensity 0 Pain Intensity 0 Pain Intensity 0 Pain Intensity 0 Pain Intensity 0 Pain Intensity 0 Pain Intensity 0 Pain Intensity 0 Pain Intensity 0 Pain Intensity 0 PAST MEDICAL HISTORY Neurological History Dementia ENT History No Pertinent History Endocrine Medical History Diabetes Type II Respiratory History No Pertinent History Cardiac History Hypertension GI Medical History No Pertinent History History No Pertinent History Pyscho-Social History No Pertinent History Communicable Disease No Pertinent History Diet Order (Last 12 Hours) 06/30/21 Breakfast Consistent Carbohydrate Diet 1800 Calorie Lab Results (Last 12 Hours) 06/30/21 06/30/21 06/29/21 Range/Units 02:43 01:11 22:25 WBC (4.0-10.5) K/mm3 RBC (4.1-5.6) M/mm3 Hgb (12.5-18.0) gm/dl Hct (42-50) % MCV (78-100) fl MCH (26-32) pg MCHC (32-36) g/dl RDW (11.5-14.0) % Plt Count (150-450) K/mm3 MPV (7.5-11.0) fl Gran % (36.0-66.0) % Eos # (Auto) (0-0.5) Absolute Lymphs (auto) (1.0-4.6) Absolute Monos (auto) (0.0-1.3) Lymphocytes % (24.0-44.0) % Monocytes % (0.0-12.0) % Eosinophils % (0.00-5.0) % Basophils % (0.0-0.4) % Absolute Granulocytes (1.4-6.9) Basophils # (0-0.4) Sodium (137-145) mmol/L Potassium (3.5-5.1) mmol/L Chloride (98-107) mmol/L Carbon Dioxide (22-30) mmol/L Anion Gap (5-15) MEQ/L BUN (9-20) mg/dL Creatinine (0.66-1.25) mg/dL Estimated GFR ML/MIN Glucose (74-106) mg/dL POC Glucometer 156 H (74 to 106) mg/dL Calcium (8.4-10.2) mg/dL Magnesium (1.6-2.3) mg/dL Total Bilirubin (0.2-1.3) mg/dL AST (17-59) U/L ALT (0-50) U/L Alkaline Phosphatase (38-126) U/L Creatine Kinase (55-170) U/L Troponin I 0.368 H* 0.128 H* (0.000-0.034) ng/mL NT-Pro-B Natriuret Pep (0-1800) pg/mL Serum Total Protein (6.3-8.2) g/dL Albumin (3.5-5.0) g/dL Lipase (23-300) U/L Urinalys Dipstick Clnc Urine Color (YELLOW) Urine Appearance (CLEAR) Urine pH (5-6) Ur Specific [place] (1.005-1.025) POC Urine Protein Conf (Negative) Urine Ketones (NEGATIVE) Urine Nitrite (NEGATIVE) Urine Bilirubin (NEGATIVE) Urine Urobilinogen (0-1) mg/dL Urine Leukocytes (NEGATIVE) Urine WBC (Auto) (0-5) /HPF Urine RBC (Auto) (0-2) /HPF U Epithel Cells (Auto) (FEW) /HPF Urine Bacteria (Auto) (NEGATIVE) /HPF Urine RBC (0-5) Lucas/ul Urine Mucus (Auto) (NEGATIVE) /HPF Ur Culture Indicated? Urine Glucose (NEGATIVE) mg/dL Influenza Type A Ag (NEGATIVE) Influenza Type B Ag (NEGATIVE) RSV (PCR) (Negative) SARS-CoV-2 (PCR) (NEGATIVE) 06/29/21 06/29/21 06/29/21 Range/Units 21:30 19:20 19:20 WBC (4.0-10.5) K/mm3 RBC (4.1-5.6) M/mm3 Hgb (12.5-18.0) gm/dl Hct (42-50) % MCV (78-100) fl MCH (26-32) pg MCHC (32-36) g/dl RDW (11.5-14.0) % Plt Count (150-450) K/mm3 MPV (7.5-11.0) fl Gran % (36.0-66.0) % Eos # (Auto) (0-0.5) Absolute Lymphs (auto) (1.0-4.6) Absolute Monos (auto) (0.0-1.3) Lymphocytes % (24.0-44.0) % Monocytes % (0.0-12.0) % Eosinophils % (0.00-5.0) % Basophils % (0.0-0.4) % Absolute Granulocytes (1.4-6.9) Basophils # (0-0.4) Sodium (137-145) mmol/L Potassium (3.5-5.1) mmol/L Chloride (98-107) mmol/L Carbon Dioxide (22-30) mmol/L Anion Gap (5-15) MEQ/L BUN (9-20) mg/dL Creatinine (0.66-1.25) mg/dL Estimated GFR ML/MIN Glucose (74-106) mg/dL POC Glucometer (74 to 106) mg/dL Calcium (8.4-10.2) mg/dL Magnesium 2.7 H (1.6-2.3) mg/dL Total Bilirubin (0.2-1.3) mg/dL AST (17-59) U/L ALT (0-50) U/L Alkaline Phosphatase (38-126) U/L Creatine Kinase 141 (55-170) U/L Troponin I 0.066 H* (0.000-0.034) ng/mL NT-Pro-B Natriuret Pep 4570 H (0-1800) pg/mL Serum Total Protein (6.3-8.2) g/dL Albumin (3.5-5.0) g/dL Lipase (23-300) U/L Urinalys Dipstick Clnc Urine Color (YELLOW) Urine Appearance (CLEAR) Urine pH (5-6) Ur Specific [place] (1.005-1.025) POC Urine Protein Conf (Negative) Urine Ketones (NEGATIVE) Urine Nitrite (NEGATIVE) Urine Bilirubin (NEGATIVE) Urine Urobilinogen (0-1) mg/dL Urine Leukocytes (NEGATIVE) Urine WBC (Auto) (0-5) /HPF Urine RBC (Auto) (0-2) /HPF U Epithel Cells (Auto) (FEW) /HPF Urine Bacteria (Auto) (NEGATIVE) /HPF Urine RBC (0-5) Lucas/ul Urine Mucus (Auto) (NEGATIVE) /HPF Ur Culture Indicated? Urine Glucose (NEGATIVE) mg/dL Influenza Type A Ag NEGATIVE (NEGATIVE) Influenza Type B Ag NEGATIVE (NEGATIVE) RSV (PCR) NEGATIVE (Negative) SARS-CoV-2 (PCR) NEGATIVE (NEGATIVE) 06/29/21 06/29/21 06/29/21 Range/Units 19:20 19:20 19:11 WBC 16.0 H (4.0-10.5) K/mm3 RBC 4.85 (4.1-5.6) M/mm3 Hgb 15.0 (12.5-18.0) gm/dl Hct 45.6 (42-50) % MCV 94.0 (78-100) fl MCH 30.9 (26-32) pg MCHC 32.9 (32-36) g/dl RDW 13.7 (11.5-14.0) % Plt Count 136 L (150-450) K/mm3 MPV 9.9 (7.5-11.0) fl Gran % 83.8 H (36.0-66.0) % Eos # (Auto) 0.01 (0-0.5) Absolute Lymphs (auto) 1.34 (1.0-4.6) Absolute Monos (auto) 1.21 (0.0-1.3) Lymphocytes % 8.4 L (24.0-44.0) % Monocytes % 7.6 (0.0-12.0) % Eosinophils % 0.1 (0.00-5.0) % Basophils % 0.1 (0.0-0.4) % Absolute Granulocytes 13.39 H (1.4-6.9) Basophils # 0.02 (0-0.4) Sodium 135 L (137-145) mmol/L Potassium 4.5 (3.5-5.1) mmol/L Chloride 104 (98-107) mmol/L Carbon Dioxide 15 L* (22-30) mmol/L Anion Gap 20.5 H (5-15) MEQ/L BUN 28 H (9-20) mg/dL Creatinine 0.91 (0.66-1.25) mg/dL Estimated GFR > 60.0 ML/MIN Glucose 178 H (74-106) mg/dL POC Glucometer (74 to 106) mg/dL Calcium 9.0 (8.4-10.2) mg/dL Magnesium (1.6-2.3) mg/dL Total Bilirubin 1.10 (0.2-1.3) mg/dL AST 27 (17-59) U/L ALT 15 (0-50) U/L Alkaline Phosphatase 75 (38-126) U/L Creatine Kinase (55-170) U/L Troponin I (0.000-0.034) ng/mL NT-Pro-B Natriuret Pep (0-1800) pg/mL Serum Total Protein 7.5 (6.3-8.2) g/dL Albumin 4.2 (3.5-5.0) g/dL Lipase 13 L (23-300) U/L Urinalys Dipstick Clnc MAIN LAB Urine Color YELLOW (YELLOW) Urine Appearance CLEAR (CLEAR) Urine pH 5.5 (5-6) Ur Specific [place] 1.020 (1.005-1.025) POC Urine Protein Conf TRACE (Negative) Urine Ketones MODERATE-40 (NEGATIVE) Urine Nitrite NEGATIVE (NEGATIVE) Urine Bilirubin NEGATIVE (NEGATIVE) Urine Urobilinogen 0.2 (0-1) mg/dL Urine Leukocytes NEGATIVE (NEGATIVE) Urine WBC (Auto) NONE (0-5) /HPF Urine RBC (Auto) NONE (0-2) /HPF U Epithel Cells (Auto) NONE (FEW) /HPF Urine Bacteria (Auto) NONE (NEGATIVE) /HPF Urine RBC SMALL (0-5) Lucas/ul Urine Mucus (Auto) SLIGHT (NEGATIVE) /HPF Ur Culture Indicated? NO Urine Glucose 500 (NEGATIVE) mg/dL Influenza Type A Ag (NEGATIVE) Influenza Type B Ag (NEGATIVE) RSV (PCR) (Negative) SARS-CoV-2 (PCR) (NEGATIVE) Microbiology Results (Last 12 Hours) 06/29/21 20:00 Blood Culture Gram Stain - Pending Blood Blood Culture - Pending 06/29/21 19:20 Blood Culture Gram Stain - Pending Blood Blood Culture - Pending Orders (Last 12 Hours) Category Date Time Status Bedrest ROUTINE Activity 06/30/21 01:36 Active Up With Assistance ROUTINE Activity 06/30/21 01:36 Active Code Status Order ROUTINE Care 06/30/21 01:36 Active Fall Protocol Q1H Care 06/30/21 01:36 Active IV Care Q6H Care 06/30/21 01:36 Active Neuro Checks Q4H Care 06/30/21 01:36 Active POCT Glucose Check ACHS Care 06/30/21 01:[address] in Observation ROUTINE Care 06/30/21 01:36 Active Leonides Pineda, Apply ROUTINE Care 06/30/21 01:36 Active Telemetry q6h Care 06/30/21 01:36 Active Weight,Daily 0600 Care 06/30/21 01:36 Active Consistent Carbohydrate Diet 1800 Calorie Diet 06/30/21 Breakfast Active CERVICAL SPINE WO CONTRAST [CT] Stat Exams 06/29/21 19:11 Taken CHEST 1 VIEW (PORTABLE) Stat Exams 06/29/21 19:11 Taken HEAD WITHOUT CONTRAST [CT] Stat Exams 06/29/21 19:11 Taken BLOOD CULTURE Stat Lab 06/29/21 20:00 Received CBC W DIFF AM.LAB Lab 06/30/21 04:00 Ordered CMP AM.LAB Lab 06/30/21 04:00 Ordered TROPONIN Q3H Lab 06/30/21 04:15 Ordered TROPONIN Q3H Lab 06/30/21 07:15 Ordered Acetaminophen 325 mg [Tylenol 325 mg] Med 06/30/21 01:36 Ordered 650 mg PO Q4H PRN PRN Albuterol/Ipratropium 3ml Neb* [DUONEB 0.5-3 MG/3 ml Med 06/30/21 01:36 Ordered Neb] 3 ml IH Q4HPRN PRN Insulin Lispro [Humalog] Med 06/30/21 01:36 Ordered See Dose Instructions SQ UD PRN Magnesium Sulfate 1 gm/100 ml* [Magnesium 1 Gm / 100 Ml Med 06/29/21 19:15 Ordered D5W] 100 ml IV Q1H NaCl 0.9% 1000 ml [Sodium Chloride 0.9% 1000 ML] 1,000 Med 06/30/21 01:36 Ordered ml IV 100 mls/hr Pantoprazole 40 mg [Protonix 40 mg IV] Med 06/30/21 10:00 Ordered 40 mg IV Q24H10 Oxygen Nasal Cannula 2 lpm RT 06/30/21 01:36 Active Active Visit Medications Generic Name Dose Route Start Last Admin Trade Name Freq PRN Reason Stop Dose Admin Acetaminophen 650 mg 06/30/21 01:36 Acetaminophen 325 Mg Tablet PO 07/30/21 01:35 Q4H PRN PRN PAIN AND/OR FEVER Albuterol/Ipratropium 3 ml 06/30/21 01:36 Ipratropium/Albuterol Sulfate 3 Ml Ampul.Neb IH 07/30/21 01:35 Q4HPRN PRN SHORTNESS OF BREATH/WHEEZING Magnesium Sulfate/Dextrose 100 mls @ 100 mls/hr 06/29/21 19:15 06/29/21 19:48 Magnesium 1 Gm / 100 Ml D5w IV 06/29/21 21:14 100 mls/hr Q1H MIRTHA Administration Sodium Chloride 1,000 mls @ 100 mls/hr 06/30/21 01:36 06/30/21 01:53 Sodium Chloride 0.9% 1000 Ml IV 07/30/21 01:35 100 mls/hr .Q10H MIRTHA Administration Insulin Human Lispro 0 unit 06/30/21 01:36 Insulin Lispro 1 Unit SQ 07/30/21 01:35 UD PRN HYPERGLYCEMIA Pantoprazole Sodium 40 mg 06/30/21 10:00 Pantoprazole 40 Mg Vial IV 07/30/21 09:59 Q24H10 MIRTHA Home Medications Medication Instructions Recorded Confirmed Last Taken Type Dabigatran Etexilate Mesylate 1 ea DAILY 06/29/21 06/29/21 Unknown History [Pradaxa] Donepezil HCl [Aricept] 5 mg PO DAILY 06/29/21 06/29/21 Unknown History Empagliflozin [Jardiance] 10 mg PO DAILY 06/29/21 06/29/21 Unknown History Glimepiride 4 mg [Amaryl 4 4 mg PO DAILY 06/29/21 06/29/21 Unknown History mg] Pravastatin Sodium 1 ea DAILY 06/29/21 06/29/21 Unknown History Spironolactone 25 mg [Aldactone 25 mg PO DAILY 06/29/21 06/29/21 Unknown History 25 MG] Tamsulosin HCl 0.4 mg [Flomax 1 ea DAILY 06/29/21 06/29/21 Unknown History 0.4 MG] Initialized on 06/30/21 02:55 - END OF NOTE 06/30/21 02:05 (created 06/30/21 02:55) SBAR Note by Adrianne Modi SITUATION I am calling about LISA DARDEN the patient's code status is The problem I am calling about is: ASSESSMENT RECOMMENDATION Physician notified at 0255 New Orders received: Vital Signs (Last 4 hours) Pulse Resp BP Pulse Ox 06/30/21 01:00 88 24 109/61 96 06/30/21 00:47 96 06/30/21 00:00 88 24 118/74 94 L 06/29/21 23:00 95 H 25 H 122/69 96 Diagnois, Code Status Diagnosis Generalized weakness, fall, dehydration Intake and Output 12 Hours 06/29/21 06/30/21 18:59 06:59 Weight 81.9 kg Physical Assessment Skin Temperature Warm Pain Scale (Last 12 Hours) Pain Intensity 0 Pain Intensity 0 Pain Intensity 0 Pain Intensity 0 Pain Intensity 0 Pain Intensity 0 Pain Intensity 0 Pain Intensity 0 Pain Intensity 0 Pain Intensity 0 Pain Intensity 0 Pain Intensity 0 Pain Intensity 0 Pain Intensity 0 Pain Intensity 0 Pain Intensity 0 Pain Intensity 0 PAST MEDICAL HISTORY Neurological History Dementia ENT History No Pertinent History Endocrine Medical History Diabetes Type II Respiratory History No Pertinent History Cardiac History Hypertension GI Medical History No Pertinent History History No Pertinent History Pyscho-Social History No Pertinent History Communicable Disease No Pertinent History Diet Order (Last 12 Hours) 06/30/21 Breakfast Consistent Carbohydrate Diet 1800 Calorie Lab Results (Last 12 Hours) 06/30/21 06/30/21 06/29/21 Range/Units 02:43 01:11 22:25 WBC (4.0-10.5) K/mm3 RBC (4.1-5.6) M/mm3 Hgb (12.5-18.0) gm/dl Hct (42-50) % MCV (78-100) fl MCH (26-32) pg MCHC (32-36) g/dl RDW (11.5-14.0) % Plt Count (150-450) K/mm3 MPV (7.5-11.0) fl Gran % (36.0-66.0) % Eos # (Auto) (0-0.5) Absolute Lymphs (auto) (1.0-4.6) Absolute Monos (auto) (0.0-1.3) Lymphocytes % (24.0-44.0) % Monocytes % (0.0-12.0) % Eosinophils % (0.00-5.0) % Basophils % (0.0-0.4) % Absolute Granulocytes (1.4-6.9) Basophils # (0-0.4) Sodium (137-145) mmol/L Potassium (3.5-5.1) mmol/L Chloride (98-107) mmol/L Carbon Dioxide (22-30) mmol/L Anion Gap (5-15) MEQ/L BUN (9-20) mg/dL Creatinine (0.66-1.25) mg/dL Estimated GFR ML/MIN Glucose (74-106) mg/dL POC Glucometer 156 H (74 to 106) mg/dL Calcium (8.4-10.2) mg/dL Magnesium (1.6-2.3) mg/dL Total Bilirubin (0.2-1.3) mg/dL AST (17-59) U/L ALT (0-50) U/L Alkaline Phosphatase (38-126) U/L Creatine Kinase (55-170) U/L Troponin I 0.368 H* 0.128 H* (0.000-0.034) ng/mL NT-Pro-B Natriuret Pep (0-1800) pg/mL Serum Total Protein (6.3-8.2) g/dL Albumin (3.5-5.0) g/dL Lipase (23-300) U/L Urinalys Dipstick Clnc Urine Color (YELLOW) Urine Appearance (CLEAR) Urine pH (5-6) Ur Specific [place] (1.005-1.025) POC Urine Protein Conf (Negative) Urine Ketones (NEGATIVE) Urine Nitrite (NEGATIVE) Urine Bilirubin (NEGATIVE) Urine Urobilinogen (0-1) mg/dL Urine Leukocytes (NEGATIVE) Urine WBC (Auto) (0-5) /HPF Urine RBC (Auto) (0-2) /HPF U Epithel Cells (Auto) (FEW) /HPF Urine Bacteria (Auto) (NEGATIVE) /HPF Urine RBC (0-5) Lucas/ul Urine Mucus (Auto) (NEGATIVE) /HPF Ur Culture Indicated? Urine Glucose (NEGATIVE) mg/dL Influenza Type A Ag (NEGATIVE) Influenza Type B Ag (NEGATIVE) RSV (PCR) (Negative) SARS-CoV-2 (PCR) (NEGATIVE) 06/29/21 06/29/21 06/29/21 Range/Units 21:30 19:20 19:20 WBC (4.0-10.5) K/mm3 RBC (4.1-5.6) M/mm3 Hgb (12.5-18.0) gm/dl Hct (42-50) % MCV (78-100) fl MCH (26-32) pg MCHC (32-36) g/dl RDW (11.5-14.0) % Plt Count (150-450) K/mm3 MPV (7.5-11.0) fl Gran % (36.0-66.0) % Eos # (Auto) (0-0.5) Absolute Lymphs (auto) (1.0-4.6) Absolute Monos (auto) (0.0-1.3) Lymphocytes % (24.0-44.0) % Monocytes % (0.0-12.0) % Eosinophils % (0.00-5.0) % Basophils % (0.0-0.4) % Absolute Granulocytes (1.4-6.9) Basophils # (0-0.4) Sodium (137-145) mmol/L Potassium (3.5-5.1) mmol/L Chloride (98-107) mmol/L Carbon Dioxide (22-30) mmol/L Anion Gap (5-15) MEQ/L BUN (9-20) mg/dL Creatinine (0.66-1.25) mg/dL Estimated GFR ML/MIN Glucose (74-106) mg/dL POC Glucometer (74 to 106) mg/dL Calcium (8.4-10.2) mg/dL Magnesium 2.7 H (1.6-2.3) mg/dL Total Bilirubin (0.2-1.3) mg/dL AST (17-59) U/L ALT (0-50) U/L Alkaline Phosphatase (38-126) U/L Creatine Kinase 141 (55-170) U/L Troponin I 0.066 H* (0.000-0.034) ng/mL NT-Pro-B Natriuret Pep 4570 H (0-1800) pg/mL Serum Total Protein (6.3-8.2) g/dL Albumin (3.5-5.0) g/dL Lipase (23-300) U/L Urinalys Dipstick Clnc Urine Color (YELLOW) Urine Appearance (CLEAR) Urine pH (5-6) Ur Specific [place] (1.005-1.025) POC Urine Protein Conf (Negative) Urine Ketones (NEGATIVE) Urine Nitrite (NEGATIVE) Urine Bilirubin (NEGATIVE) Urine Urobilinogen (0-1) mg/dL Urine Leukocytes (NEGATIVE) Urine WBC (Auto) (0-5) /HPF Urine RBC (Auto) (0-2) /HPF U Epithel Cells (Auto) (FEW) /HPF Urine Bacteria (Auto) (NEGATIVE) /HPF Urine RBC (0-5) Lucas/ul Urine Mucus (Auto) (NEGATIVE) /HPF Ur Culture Indicated? Urine Glucose (NEGATIVE) mg/dL Influenza Type A Ag NEGATIVE (NEGATIVE) Influenza Type B Ag NEGATIVE (NEGATIVE) RSV (PCR) NEGATIVE (Negative) SARS-CoV-2 (PCR) NEGATIVE (NEGATIVE) 06/29/21 06/29/21 06/29/21 Range/Units 19:20 19:20 19:11 WBC 16.0 H (4.0-10.5) K/mm3 RBC 4.85 (4.1-5.6) M/mm3 Hgb 15.0 (12.5-18.0) gm/dl Hct 45.6 (42-50) % MCV 94.0 (78-100) fl MCH 30.9 (26-32) pg MCHC 32.9 (32-36) g/dl RDW 13.7 (11.5-14.0) % Plt Count 136 L (150-450) K/mm3 MPV 9.9 (7.5-11.0) fl Gran % 83.8 H (36.0-66.0) % Eos # (Auto) 0.01 (0-0.5) Absolute Lymphs (auto) 1.34 (1.0-4.6) Absolute Monos (auto) 1.21 (0.0-1.3) Lymphocytes % 8.4 L (24.0-44.0) % Monocytes % 7.6 (0.0-12.0) % Eosinophils % 0.1 (0.00-5.0) % Basophils % 0.1 (0.0-0.4) % Absolute Granulocytes 13.39 H (1.4-6.9) Basophils # 0.02 (0-0.4) Sodium 135 L (137-145) mmol/L Potassium 4.5 (3.5-5.1) mmol/L Chloride 104 (98-107) mmol/L Carbon Dioxide 15 L* (22-30) mmol/L Anion Gap 20.5 H (5-15) MEQ/L BUN 28 H (9-20) mg/dL Creatinine 0.91 (0.66-1.25) mg/dL Estimated GFR > 60.0 ML/MIN Glucose 178 H (74-106) mg/dL POC Glucometer (74 to 106) mg/dL Calcium 9.0 (8.4-10.2) mg/dL Magnesium (1.6-2.3) mg/dL Total Bilirubin 1.10 (0.2-1.3) mg/dL AST 27 (17-59) U/L ALT 15 (0-50) U/L Alkaline Phosphatase 75 (38-126) U/L Creatine Kinase (55-170) U/L Troponin I (0.000-0.034) ng/mL NT-Pro-B Natriuret Pep (0-1800) pg/mL Serum Total Protein 7.5 (6.3-8.2) g/dL Albumin 4.2 (3.5-5.0) g/dL Lipase 13 L (23-300) U/L Urinalys Dipstick Clnc MAIN LAB Urine Color YELLOW (YELLOW) Urine Appearance CLEAR (CLEAR) Urine pH 5.5 (5-6) Ur Specific [place] 1.020 (1.005-1.025) POC Urine Protein Conf TRACE (Negative) Urine Ketones MODERATE-40 (NEGATIVE) Urine Nitrite NEGATIVE (NEGATIVE) Urine Bilirubin NEGATIVE (NEGATIVE) Urine Urobilinogen 0.2 (0-1) mg/dL Urine Leukocytes NEGATIVE (NEGATIVE) Urine WBC (Auto) NONE (0-5) /HPF Urine RBC (Auto) NONE (0-2) /HPF U Epithel Cells (Auto) NONE (FEW) /HPF Urine Bacteria (Auto) NONE (NEGATIVE) /HPF Urine RBC SMALL (0-5) Lucas/ul Urine Mucus (Auto) SLIGHT (NEGATIVE) /HPF Ur Culture Indicated? NO Urine Glucose 500 (NEGATIVE) mg/dL Influenza Type A Ag (NEGATIVE) Influenza Type B Ag (NEGATIVE) RSV (PCR) (Negative) SARS-CoV-2 (PCR) (NEGATIVE) Microbiology Results (Last 12 Hours) 06/29/21 20:00 Blood Culture Gram Stain - Pending Blood Blood Culture - Pending 06/29/21 19:20 Blood Culture Gram Stain - Pending Blood Blood Culture - Pending Orders (Last 12 Hours) Category Date Time Status Bedrest ROUTINE Activity 06/30/21 01:36 Active Up With Assistance ROUTINE Activity 06/30/21 01:36 Active Code Status Order ROUTINE Care 06/30/21 01:36 Active Fall Protocol Q1H Care 06/30/21 01:36 Active IV Care Q6H Care 06/30/21 01:36 Active Neuro Checks Q4H Care 06/30/21 01:36 Active POCT Glucose Check ACHS Care 06/30/21 01:[address] in Observation ROUTINE Care 06/30/21 01:36 Active Leonides Pineda, Apply ROUTINE Care 06/30/21 01:36 Active Telemetry q6h Care 06/30/21 01:36 Active Weight,Daily 0600 Care 06/30/21 01:36 Active Consistent Carbohydrate Diet 1800 Calorie Diet 06/30/21 Breakfast Active CERVICAL SPINE WO CONTRAST [CT] Stat Exams 06/29/21 19:11 Taken CHEST 1 VIEW (PORTABLE) Stat Exams 06/29/21 19:11 Taken HEAD WITHOUT CONTRAST [CT] Stat Exams 06/29/21 19:11 Taken BLOOD CULTURE Stat Lab 06/29/21 20:00 Received CBC W DIFF AM.LAB Lab 06/30/21 04:00 Ordered CMP AM.LAB Lab 06/30/21 04:00 Ordered TROPONIN Q3H Lab 06/30/21 04:15 Ordered TROPONIN Q3H Lab 06/30/21 07:15 Ordered Acetaminophen 325 mg [Tylenol 325 mg] Med 06/30/21 01:36 Ordered 650 mg PO Q4H PRN PRN Albuterol/Ipratropium 3ml Neb* [DUONEB 0.5-3 MG/3 ml Med 06/30/21 01:36 Ordered Neb] 3 ml IH Q4HPRN PRN Insulin Lispro [Humalog] Med 06/30/21 01:36 Ordered See Dose Instructions SQ UD PRN Magnesium Sulfate 1 gm/100 ml* [Magnesium 1 Gm / 100 Ml Med 06/29/21 19:15 Ordered D5W] 100 ml IV Q1H NaCl 0.9% 1000 ml [Sodium Chloride 0.9% 1000 ML] 1,000 Med 06/30/21 01:36 Ordered ml IV 100 mls/hr Pantoprazole 40 mg [Protonix 40 mg IV] Med 06/30/21 10:00 Ordered 40 mg IV Q24H10 Oxygen Nasal Cannula 2 lpm RT 06/30/21 01:36 Active Active Visit Medications Generic Name Dose Route Start Last Admin Trade Name Freq PRN Reason Stop Dose Admin Acetaminophen 650 mg 06/30/21 01:36 Acetaminophen 325 Mg Tablet PO 07/30/21 01:35 Q4H PRN PRN PAIN AND/OR FEVER Albuterol/Ipratropium 3 ml 06/30/21 01:36 Ipratropium/Albuterol Sulfate 3 Ml Ampul.Neb IH 07/30/21 01:35 Q4HPRN PRN SHORTNESS OF BREATH/WHEEZING Magnesium Sulfate/Dextrose 100 mls @ 100 mls/hr 06/29/21 19:15 06/29/21 19:48 Magnesium 1 Gm / 100 Ml D5w IV 06/29/21 21:14 100 mls/hr Q1H MIRTHA Administration Sodium Chloride 1,000 mls @ 100 mls/hr 06/30/21 01:36 06/30/21 01:53 Sodium Chloride 0.9% 1000 Ml IV 07/30/21 01:35 100 mls/hr .Q10H MIRTHA Administration Insulin Human Lispro 0 unit 06/30/21 01:36 Insulin Lispro 1 Unit SQ 07/30/21 01:35 UD PRN HYPERGLYCEMIA Pantoprazole Sodium 40 mg 06/30/21 10:00 Pantoprazole 40 Mg Vial IV 07/30/21 09:59 Q24H10 MIRTHA Home Medications Medication Instructions Recorded Confirmed Last Taken Type Dabigatran Etexilate Mesylate 1 ea DAILY 06/29/21 06/29/21 Unknown History [Pradaxa] Donepezil HCl [Aricept] 5 mg PO DAILY 06/29/21 06/29/21 Unknown History Empagliflozin [Jardiance] 10 mg PO DAILY 06/29/21 06/29/21 Unknown History Glimepiride 4 mg [Amaryl 4 4 mg PO DAILY 06/29/21 06/29/21 Unknown History mg] Pravastatin Sodium 1 ea DAILY 06/29/21 06/29/21 Unknown History Spironolactone 25 mg [Aldactone 25 mg PO DAILY 06/29/21 06/29/21 Unknown History 25 MG] Tamsulosin HCl 0.4 mg [Flomax 1 ea DAILY 06/29/21 06/29/21 Unknown History 0.4 MG] Initialized on 06/30/21 02:55 - END OF NOTE Code(s): I21.4 - NON-ST ELEVATION (NSTEMI) MYOCARDIAL INFARCTION (2) Fall Current Visit: Yes Status: Acute Qualifiers: Encounter type: initial encounter Qualified Code(s): W19.XXXA - Unspecified fall, initial encounter Code(s): W19.XXXA - UNSPECIFIED FALL, INITIAL ENCOUNTER
[2021-06-30] MEDS ORDERED: NON-FORMULARY ITEM (Donepezil Hcl [Aricept] 5 MG Tablet) PO SCH (22:00)
[2021-06-30] MEDS ORDERED: Aricept 10 MG PO SCH (22:00)
[2021-07-01 05:29] LABS: Hemoglobin 11.8 gm/dl (12.5-18.0); Mean Cell Volume 93.1 fl (78-100); Mean Corpuscular Hemoglobin 31.4 pg (26-32); Mean Corpuscular Hgb Concent. 33.7 g/dl (32-36); Mean Platelet Volume 9.8 fl (7.5-11.0); Platelet Count 108 K/mm3 (150-450); Red Blood Count 3.76 M/mm3 (4.1-5.6); Red Cell Distribution Width 13.8 % (11.5-14.0); White Blood Count 11.4 K/mm3 (4.0-10.5)
[2021-07-01 05:45] LABS: ALKALINE PHOSPHATASE 50 U/L (38-126); ANION GAP 13.7 MEQ/L (5-15); BLOOD UREA NITROGEN 40 mg/dL (9-20); CHLORIDE 105 mmol/L (98-107); Calcium 7.7 mg/dL (8.4-10.2); Carbon Dioxide 17 mmol/L (22-30); Creatinine 1 0.97 mg/dL (0.66-1.25); EST GLOMERULAR FILTRATION RATE > 60.0 ML/MIN; Glucose 78 mg/dL (74-106); Potassium 3.9 mmol/L (3.5-5.1); SGOT/AST 36 U/L (17-59); SGPT/ALT 18 U/L (0-50); SODIUM 132 mmol/L (137-145); Total Protein 5.8 g/dL (6.3-8.2)
[2021-07-01 07:11] VITALS: BP 107/60; PULSE 70; O2SAT 92
[2021-07-01] MEDS: Lopressor 25MG Tab PO SCH (08:37)
[2021-07-01] MEDS: ECOTRIN 81 MG PO SCH (08:37)
[2021-07-01] MEDS: Flomax 0.4 MG PO SCH (08:38)
[2021-07-01] MEDS: ZOCOR 20MG PO SCH (08:38)
[2021-07-01] MEDS: Imdur 30 MG PO SCH (08:38)
[2021-07-01] MEDS: PRADAXA 75 MG PO SCH (08:39)
[2021-07-01] MEDS: Aldactone 25 MG PO SCH (08:40)
[2021-07-01] MEDS: JARDIANCE PO SCH (08:40)
[2021-07-01] MEDS: PROTONIX 40 MG IV IV SCH (08:42)
[2021-07-01] MEDS: AMARYL 4 MG PO SCH (08:44)
[2021-07-01] MEDS: Glucophage 500 MG PO SCH (08:44)
--- NOTE | 2021-07-01 19:16 | PCM.DS ---
Discharge Summary Date of Admission: 06/30/21 01:28 Admitting Physician: SUNIL RODRIGUEZ Primary Care Provider: SUNIL RODRIGUEZ Allergies Allergies No Known Drug Allergies Allergy (Verified 06/29/21 19:05) Hospital Summary - Hospital Course Hospital Course: Chief Complaint Diagnosis Generalized weakness, fall, dehydration Allergies Allergy/AdvReac Type Severity Reaction Status Date / Time No Known Drug Allergies Allergy Verified 06/29/21 19:05 Vital Signs (Last 24 hours) Temp Pulse Resp BP Pulse Ox 07/01/21 07:10 98.2 F 70 17 107/60 92 L 07/01/21 03:11 98.2 F 75 16 114/57 96 06/30/21 23:29 97.6 F 63 18 88/54 95 06/30/21 19:44 96.8 F 71 20 84/47 96 Home Medications Medication Instructions Recorded Confirmed Last Taken Type Dabigatran Etexilate Mesylate 1 ea PO BID 06/29/21 06/30/21 1 Day Ago History [Pradaxa] ~06/29/21 150 mg Donepezil HCl [Aricept] 5 mg PO HS 06/29/21 06/30/21 2 Days Ago History ~06/28/21 5 mg Empagliflozin [Jardiance] 25 mg PO DAILY 06/29/21 06/30/21 1 Day Ago History ~06/29/21 25 mg Pravastatin Sodium 1 ea PO DAILY 06/29/21 06/30/21 1 Day Ago History ~06/29/21 1 tab Spironolactone 25 mg [Aldactone 25 mg PO DAILY 06/29/21 06/30/21 1 Day Ago History 25 MG] ~06/29/21 25 mg Tamsulosin HCl 0.4 mg [Flomax 1 ea PO DAILY 06/29/21 06/30/21 1 Day Ago History 0.4 MG] ~06/29/21 4 mg Aspirin [Aspirin EC] 81 mg PO DAILY 06/30/21 06/30/21 1 Day Ago History ~06/29/21 81 mg Isosorbide Mononitrate 30 mg 30 mg PO DAILY 06/30/21 06/30/21 1 Day Ago History [Imdur 30 MG] ~06/29/21 30 mg Metoprolol Tartrate 25 mg 25 mg PO BID 06/30/21 06/30/21 1 Day Ago History [Lopressor 25MG Tab] ~06/29/21 25 mg Glimepiride 4 mg [Amaryl 4 4 mg PO DAILY #0 07/01/21 06/30/21 1 Day Ago Rx mg] ~06/29/21 4 mg Metformin HCl 500 mg 1,000 mg PO DAILY #0 07/01/21 06/30/21 1 Day Ago Rx [Glucophage 500 MG] ~06/29/21 1000 mg Current Medications Discontinued Medications Generic Name Dose Route Start Last Admin Trade Name Freq PRN Reason Stop Dose Admin Acetaminophen 650 mg 06/30/21 01:36 Acetaminophen 325 Mg Tablet PO 07/30/21 01:35 Q4H PRN PRN PAIN AND/OR FEVER Albuterol/Ipratropium 3 ml 06/30/21 01:36 Ipratropium/Albuterol Sulfate 3 Ml Ampul.Neb IH 07/30/21 01:35 Q4HPRN PRN SHORTNESS OF BREATH/WHEEZING Aspirin 324 mg 06/29/21 23:49 06/29/21 23:52 Aspirin 81 Mg Tab.Chew PO 06/29/21 23:50 324 mg STAT ONE Administration Aspirin 81 mg 06/30/21 10:00 07/01/21 08:37 Aspirin 81 Mg Tablet.Ec PO 07/30/21 09:59 81 mg DAILY MIRTHA Administration Dabigatran 150 mg 06/30/21 10:00 07/01/21 08:39 Dabigatran Etexilate Mesylate 75 Mg Capsule PO 07/30/21 09:59 150 mg BID MIRTHA Administration Donepezil HCl 5 mg 06/30/21 22:00 06/30/21 21:04 Donepezil Hcl 10 Mg Tablet PO 07/30/21 21:59 5 mg HS MIRTHA Administration Empagliflozin 25 mg 06/30/21 10:00 07/01/21 08:40 Empagliflozin 10 Mg Tablet PO 07/30/21 09:59 25 mg DAILY MIRTHA Administration Glimepiride 4 mg 06/30/21 08:00 07/01/21 08:44 Glimepiride 4 Mg Tablet PO 07/30/21 07:59 Not Given BIDWM MIRTHA Magnesium Sulfate/Dextrose Confirm 06/29/21 19:05 Magnesium 1 Gm / 100 Ml D5w Administered 06/29/21 19:06 Dose 100 mls @ ud IV .STK-MED ONE Magnesium Sulfate/Dextrose 100 mls @ 100 mls/hr 06/29/21 19:15 06/29/21 19:48 Magnesium 1 Gm / 100 Ml D5w IV 06/29/21 21:14 100 mls/hr Q1H MIRTHA Administration Sodium Chloride 1,000 mls @ 999 mls/hr 06/29/21 19:11 06/29/21 21:21 Sodium Chloride 0.9% 1000 Ml IV 06/29/21 20:11 Infused .Q1H1M STA Infusion Sodium Chloride Confirm 06/29/21 19:46 Sodium Chloride 0.9% 1000 Ml Administered 06/29/21 19:47 Dose 1,000 mls @ ud .ROUTE .STK-MED ONE Sodium Chloride 1,000 mls @ 100 mls/hr 06/30/21 01:36 06/30/21 23:43 Sodium Chloride 0.9% 1000 Ml IV 07/30/21 01:35 100 mls/hr .Q10H MIRHTA Administration Insulin Human Lispro 0 unit 06/30/21 01:36 Insulin Lispro 1 Unit SQ 07/30/21 01:35 UD PRN HYPERGLYCEMIA Isosorbide Mononitrate 30 mg 06/30/21 10:00 07/01/21 08:38 Isosorbide Mononitrate 30 Mg Tab PO 07/30/21 09:59 30 mg DAILY MIRTHA Administration Metformin HCl 1,000 mg 06/30/21 08:00 07/01/21 08:44 Metformin Hcl 500 Mg Tablet PO 07/30/21 07:59 Not Given BIDWM MIRTHA Metoprolol Tartrate 25 mg 06/30/21 10:00 07/01/21 08:37 Metoprolol Tartrate 25 Mg Tab PO 07/30/21 09:59 25 mg BID MIRTHA Administration Pantoprazole Sodium 40 mg 06/30/21 10:00 07/01/21 08:42 Pantoprazole 40 Mg Vial IV 07/30/21 09:59 40 mg Q24H10 MIRTHA Administration Simvastatin 40 mg 06/30/21 10:00 07/01/21 08:38 Simvastatin 20 Mg Tablet PO 07/30/21 09:59 40 mg DAILY MIRTHA Administration Spironolactone 25 mg 06/30/21 10:00 07/01/21 08:40 Spironolactone 25 Mg Tablet PO 07/30/21 09:59 25 mg DAILY MIRTHA Administration Tamsulosin HCl 0.4 mg 06/30/21 10:00 07/01/21 08:38 Tamsulosin Hcl 0.4 Mg Cap PO 07/30/21 09:59 0.4 mg DAILY MIRTHA Administration Intake & Output (Last 24 hours) 06/29/21 06/30/21 07/01/21 07/02/21 11:59 11:59 11:59 11:59 Intake Total 360 3495 Output Total 400 Balance -40 3495 Weight 74.8 kg 76.5 kg Microbiology Results (Last 24 hours) 06/29/21 19:20 Blood Blood Culture Gram Stain - Final 06/29/21 19:20 Blood Blood Culture - Pending Laboratory Results (Last 24 hours) 07/01/21 07/01/21 07/01/21 11:19 06:58 04:30 WBC RBC Hgb Hct MCV MCH MCHC RDW Plt Count MPV Sodium Potassium Chloride Carbon Dioxide Anion Gap BUN Creatinine Estimated GFR Glucose POC Glucometer 83 70 L Calcium Magnesium 2.4 H Total Bilirubin AST ALT Alkaline Phosphatase Troponin I Serum Total Protein Albumin 07/01/21 07/01/21 06/30/21 04:30 04:30 20:40 WBC 11.4 H RBC 3.76 L Hgb 11.8 L Hct 35.0 L MCV 93.1 MCH 31.4 MCHC 33.7 RDW 13.8 Plt Count 108 L MPV 9.8 Sodium 132 L Potassium 3.9 Chloride 105 Carbon Dioxide 17 L Anion Gap 13.7 BUN 40 H Creatinine 0.97 Estimated GFR > 60.0 Glucose 78 POC Glucometer 160 H Calcium 7.7 L Magnesium Total Bilirubin 0.90 AST 36 ALT 18 Alkaline Phosphatase 50 Troponin I 2.780 H* Serum Total Protein 5.8 L Albumin 3.0 L Orders (Last 24 hours) Category Date Time Status Discharge Routine Discharge 07/01/21 Ordered CBC AM.LAB Lab 07/01/21 04:30 Completed CMP AM.LAB Lab 07/01/21 04:30 Completed MAG [MAGNESIUM] Routine Lab 07/01/21 04:30 Completed POCT GLUCOSE Stat Lab 06/30/21 19:00 Completed POCT GLUCOSE Stat Lab 06/30/21 20:40 Completed POCT GLUCOSE Stat Lab 07/01/21 06:58 Completed POCT GLUCOSE Stat Lab 07/01/21 11:19 Completed TROPONIN AM.LAB Lab 07/01/21 04:30 Completed Donepezil HCl 10 mg [Aricept 10 MG] Med 06/30/21 22:00 Discontinued 5 mg PO HS Patient Care Notes (Last 24 hours) 07/01/21 11:23 Case Management Note by Isabel Garcia S/W - SHE PLANS FOR PATIENT TO RETURN HOME TO HER CARE AT TIME OF DC. SHE REPORTS SHE WILL BE WITH PATIENT 10/10 AT HOME TO ASSIST HIM. SHE IS AGREEABLE FOR PATIENT TO RECEIVE OTPT PHYSICAL THERAPY. PHYSICAL THERAPY AWARE. ORDER PLACED ON CHART FOR MD TO SIGN. WALKER ORDERED THRU [facility] TO BE DELIVERED TO PATIENT'S HOME. STATES SHE CAN HELP PATIENT AMBULATE UNTIL WALKER ARRIVES. NO OTHER NEW NEEDS IDENTIFIED AT THIS TIME. Initialized on 07/01/21 11:23 - END OF NOTE 07/01/21 10:25 Physical Therapy Note by [id number] PT. SEEN BY P.TNolan THIS AM. REPORTS NO C/O PN. DISCUSSED BENEFIT TO OP P.T. PT. TO GET ROLLATOR AT D/C TO INCREASE GAIT STABILITY. IN BED UPON P.T. ARRIVAL TO ROOM. SUPINE TO SIT - CGA-SBA W/ HOB ELEVATED. SIT TO STAND - CGA. REQUIRES CUES TO LOCK ROLLATOR AND SCOOT TO EDGE OF BED BEFORE STANDING FOR SAFETY. PT. AMBULATED ~ 150'+ W/ ROLLATOR AND CGA. PT. WALKS VERY FAST WHICH IS A SAFETY RISK. PT. REQUIRES FREQUENT V.C. TO SLOW PACE AND TO IMPROVE TRUNK POSTURE. PT. ABLE TO PERFORM SIT TO SUPINE W/ CGA. PT. IS SCHEDULED FOR OP P.T. EVAL ON 07/06/21 AT 1 PM. WILL CONT. P.T. UNTIL D/C. Initialized on 07/01/21 10:25 - END OF NOTE 07/01/21 09:58 Case Management Note by Isabel Gacria ORDER FOR ROLLATOR SUBMITTED TO [facility]IA [facility]. INFORMATION FOR DELIVERY ADDED TO PATIENT'S DC INSTRUCTIONS. Initialized on 07/01/21 09:58 - END OF NOTE 06/30/21 21:12 Nursing Note by Sabina Love No, I don't have any questions for the doctor. He's answered everything. I'd like to go home. voiced concern about gait with ambulation and using a walker. questioning further therapy or help. Initialized on 06/30/21 21:12 - END OF NOTE - Vitals & Intake/Output Vital Signs: Vital Signs Temperature 98.2 F 07/01/21 07:10 Pulse Rate 70 07/01/21 07:10 Respiratory Rate 17 07/01/21 07:10 Blood Pressure 107/60 07/01/21 07:10 O2 Sat by Pulse Oximetry 92 L 07/01/21 07:10 Intake & Output: Intake & Output 06/29/21 06/30/21 07/01/21 07/02/21 11:59 11:59 11:59 11:59 Intake Total 360 3495 Output Total 400 Balance -40 3495 Weight 74.8 kg 76.5 kg - Lab Result Diagrams: 07/01/21 04:30 07/01/21 04:30 Lab Results-Last 24 Hrs: Lab Results-Last 24 Hours 06/30/21 07/01/21 07/01/21 Range/Units 20:40 04:30 04:30 WBC 11.4 H (4.0-10.5) K/mm3 RBC 3.76 L (4.1-5.6) M/mm3 Hgb 11.8 L (12.5-18.0) gm/dl Hct 35.0 L (42-50) % MCV 93.1 (78-100) fl MCH 31.4 (26-32) pg MCHC 33.7 (32-36) g/dl RDW 13.8 (11.5-14.0) % Plt Count 108 L (150-450) K/mm3 MPV 9.8 (7.5-11.0) fl Sodium 132 L (137-145) mmol/L Potassium 3.9 (3.5-5.1) mmol/L Chloride 105 (98-107) mmol/L Carbon Dioxide 17 L (22-30) mmol/L Anion Gap 13.7 (5-15) MEQ/L BUN 40 H (9-20) mg/dL Creatinine 0.97 (0.66-1.25) mg/dL Estimated GFR > 60.0 ML/MIN Glucose 78 (74-106) mg/dL POC Glucometer 160 H (74 to 106) mg/dL Calcium 7.7 L (8.4-10.2) mg/dL Magnesium (1.6-2.3) mg/dL Total Bilirubin 0.90 (0.2-1.3) mg/dL AST 36 (17-59) U/L ALT 18 (0-50) U/L Alkaline Phosphatase 50 (38-126) U/L Troponin I 2.780 H* (0.000-0.034) ng/mL Serum Total Protein 5.8 L (6.3-8.2) g/dL Albumin 3.0 L (3.5-5.0) g/dL 07/01/21 07/01/21 07/01/21 Range/Units 04:30 06:58 11:19 WBC (4.0-10.5) K/mm3 RBC (4.1-5.6) M/mm3 Hgb (12.5-18.0) gm/dl Hct (42-50) % MCV (78-100) fl MCH (26-32) pg MCHC (32-36) g/dl RDW (11.5-14.0) % Plt Count (150-450) K/mm3 MPV (7.5-11.0) fl Sodium (137-145) mmol/L Potassium (3.5-5.1) mmol/L Chloride (98-107) mmol/L Carbon Dioxide (22-30) mmol/L Anion Gap (5-15) MEQ/L BUN (9-20) mg/dL Creatinine (0.66-1.25) mg/dL Estimated GFR ML/MIN Glucose (74-106) mg/dL POC Glucometer 70 L 83 (74 to 106) mg/dL Calcium (8.4-10.2) mg/dL Magnesium 2.4 H (1.6-2.3) mg/dL Total Bilirubin (0.2-1.3) mg/dL AST (17-59) U/L ALT (0-50) U/L Alkaline Phosphatase (38-126) U/L Troponin I (0.000-0.034) ng/mL Serum Total Protein (6.3-8.2) g/dL Albumin (3.5-5.0) g/dL Micro Results-Entire Visit: Microbiology 06/29/21 19:20 Blood Culture Gram Stain - Final Blood Accuchecks Date 07/01/21 Date 07/01/21 Time 11:24 Time 07:10 - Radiology Exams Ordered Rad Exams-Entire Visit: Radiology Procedures Category Date Time Status CERVICAL SPINE WO CONTRAST [CT] Stat Exams 06/29/21 19:11 Completed CHEST 1 VIEW (PORTABLE) Stat Exams 06/29/21 19:11 Completed ECHO W/2D AND DOPPLER [US] Routine Exams 06/30/21 09:09 Taken HEAD WITHOUT CONTRAST [CT] Stat Exams 06/29/21 19:11 Completed - Procedures and Test Procedures and Tests throughout Hospitalization: Therapy Orders & Screens 06/30/21 01:36 Oxygen Nasal Cannula 2 lpm Comment: 06/30/21 03:04 ST Screen per Nursing Assess ONCE Comment: Protocol Order Physician Instructions: Greater than [address] Admission Screening Reason For Exam: Triggered on Admission Diagnosis: Generalized weakness, fall, dehydration CVA/Dyshpagia/Aphasia: No Cognitive Deficits: Yes Dehydration/Nutrition Deficit: Yes Reflux: No Oral-Motor Difficulties: No Pneumonia: No Senior Care Resident: No Total Points: 8 06/30/21 05:56 Respiratory Therapy Assessment DAILY Comment: Diagnosis: Generalized weakness, fall, dehydration 06/30/21 13:20 PT Eval & Treat (MD Order) ONCE Reason for Eval:: UNSTEADY GAIT Diagnosis: Generalized weakness, fall, dehydration Discharge Exam General Appearance: no apparent distress, alert Neurologic Exam: alert, oriented x 3, cooperative, normal mood/affect, nml cerebellar function, sensation nml, No motor deficits Eye Exam: PERRL, EOMI, eyes nml inspection Ears, Nose, Throat Exam: normal ENT inspection, pharynx normal, moist mucous membranes Neck Exam: normal inspection, non-tender, supple, full range of motion Respiratory Exam: normal breath sounds, lungs clear, No respiratory distress Cardiovascular Exam: regular rate/rhythm, normal heart sounds Gastrointestinal/Abdomen Exam: soft, No tenderness, No mass Male Genitalia Exam: deferred Rectal Exam: deferred Back Exam: normal inspection, normal range of motion, No CVA tenderness, No vertebral tenderness Extremity Exam: normal inspection, normal range of motion Skin Exam: normal color, warm, dry Final Diagnosis/Problem List - Final Discharge Diagnosis/Problem (1) NSTEMI (non-ST elevated myocardial infarction) Status: Resolved Code(s): I21.4 - NON-ST ELEVATION (NSTEMI) MYOCARDIAL INFARCTION (2) Fall Status: Resolved Code(s): W19.XXXA - UNSPECIFIED FALL, INITIAL ENCOUNTER - Discharge Discharge Date: 07/01/21 Disposition: Home, Self-Care Condition: Stable Prescriptions: Continue Spironolactone 25 mg [Aldactone 25 MG] 25 mg PO DAILY Tamsulosin HCl 0.4 mg [Flomax 0.4 MG] 1 ea PO DAILY Pravastatin Sodium 1 ea PO DAILY Empagliflozin [Jardiance] 25 mg PO DAILY Donepezil HCl [Aricept] 5 mg PO HS Dabigatran Etexilate Mesylate [Pradaxa] 1 ea PO BID Isosorbide Mononitrate 30 mg [Imdur 30 MG] 30 mg PO DAILY Metoprolol Tartrate 25 mg [Lopressor 25MG Tab] 25 mg PO BID Aspirin [Aspirin EC] 81 mg PO DAILY Changed Glimepiride 4 mg [Amaryl 4 mg] 4 mg PO DAILY #0 Metformin HCl 500 mg [Glucophage 500 MG] 1,000 mg PO DAILY #0 Outpatient Orders: Physical Therapy Eval & Treat Facility: [facility], Location: PHYSICAL THERAPY Instructions: Heart Attack (DC) Additional Instructions: PHYSICAL THERAPY WILL CONTACT YOU TO ARRANGE AN APPOINTMENT WALKER ORDER SUBMITTED TO [facility]- THEY WILL DELIVER IT TO YOUR HOME. THEIR PHONE NUMBER IS [phone] IF YOU NEED TO CONTACT THEM Follow up with: SUNIL RODRIGUEZ MD [Primary Care Provider] - 07/08/21 2:45 pm ([place] [facility].) Jareth Bartholomew MD [CONSULTING PHYSICIAN] - 07/08/21 11:15 am
== END 2021-07-01 11:50 | disposition home or self-care (01) ==
LOC: ED 18:49 → MED SURG 06-30 01:28
PROVIDERS: ADMIT General Practice; ATTEND General Practice
DX: I21.4 Non-ST elevation (NSTEMI) myocardial infarction (principal); W19.XXXA Unspecified fall, initial encounter; F03.90 Unspecified dementia, unspecified severity, without behavioral disturbance, psychotic disturbance, mood disturbance, and anxiety; I10 Essential (primary) hypertension; E78.5 Hyperlipidemia, unspecified; E11.9 Type 2 diabetes mellitus without complications; E86.0 Dehydration; Z79.899 Other long term (current) drug therapy
CPT/HCPCS: 0241U; 36000; 36415; 70450; 71045; 72125; 80053; 80061; 81015; 82550; 82947; 83690; 83721; 83735; 83880; 84484; 85025; 85027; 87040; 87077; 93005; 93268; 93306; 94760; 97161; 97530; 99284; G0378; J3475; A9270-GY

== ENCOUNTER 2021-08-17 23:12 | Emergency (ER) | payer MEDICARE ==
--- NOTE | 2021-08-17 23:15 | ERPHSYRPT ---
- History of Present Illness Time Seen by Provider: 08/17/21 23:15 Historian: patient Exam Limitations: clinical condition Physician History: This is an 80-year-old white male patient brought into the emergency room via ambulance service from [facility]. Patient has been constipated for 9 days. He had a yellow vomitus this evening and therefore the patient was brought into the emergency department. Upon arrival to the emergency department patient has no complaints of abdominal pain. Patient does have a history of dementia, hypertension and type 2 diabetes. Patient has a PICC line in place and is receiving antibiotics for treatment of endocarditis. Nursing states that the [facility]dc only gave bisacodyl one-time to the patient to help try to relieve his constipation. Timing/Duration: today Severity of Pain-Max: none Severity of Pain-Current: none Associated Symptoms: vomiting Previous symptoms: no prior history Allergies/Adverse Reactions: No Known Drug Allergies Allergy (Verified 06/29/21 19:05) Home Medications: Dabigatran Etexilate Mesylate [Pradaxa] 1 ea PO BID 06/29/21 [History] Donepezil HCl [Aricept] 5 mg PO HS 06/29/21 [History] Empagliflozin [Jardiance] 25 mg PO DAILY 06/29/21 [History] Pravastatin Sodium 1 ea PO DAILY 06/29/21 [History] Spironolactone 25 mg [Aldactone 25 MG] 25 mg PO DAILY 06/29/21 [History] Tamsulosin HCl 0.4 mg [Flomax 0.4 MG] 1 ea PO DAILY 06/29/21 [History] Aspirin [Aspirin EC] 81 mg PO DAILY 06/30/21 [History] Isosorbide Mononitrate 30 mg [Imdur 30 MG] 30 mg PO DAILY 06/30/21 [History ] Metoprolol Tartrate 25 mg [Lopressor 25MG Tab] 25 mg PO BID 06/30/21 [History] Hx Tetanus, Diphtheria Vaccination/Date Given: No Hx Influenza Vaccination/Date Given: No Hx Pneumococcal Vaccination/Date Given: No Travel Risk - International Travel Have you traveled outside of the country in past 3 weeks: No - Coronavirus Screening Are you exhibiting any of the following symptoms?: Yes Symptoms: Vomiting/Diarrhea - Vaccine Status Have you recieved a Covid-19 vaccination: Yes Belt Loop Cutter: Unknown - Vaccination Dates Date of 2cond Vaccination (if applicable): 2020 Dates if Unknown: ? - Review of Systems Constitutional: No Symptoms Eyes: No Symptoms Ears, Nose, & Throat: No Symptoms Respiratory: No Symptoms Cardiac: No Symptoms Abdominal/Gastrointestinal: Vomiting, Constipation Genitourinary Symptoms: No Symptoms Musculoskeletal: No Symptoms Skin: No Symptoms Neurological: No Symptoms Psychological: No Symptoms Endocrine: No Symptoms Hematologic/Lymphatic: No Symptoms Immunological/Allergic: No Symptoms All Other Systems: Reviewed and Negative - Past Medical History Pertinent Past Medical History: Yes Neurological History: Dementia ENT History: No Pertinent History Cardiac History: Hypertension Respiratory History: No Pertinent History Endocrine Medical History: Diabetes Type II Musculoskeletal History: No Pertinent History GI Medical History: No Pertinent History History: No Pertinent History Psycho-Social History: No Pertinent History Male Reproductive Disorders: No Pertinent History - Past Surgical History Past Surgical History: Yes Neuro Surgical History: No Pertinent History Cardiac: Pacemaker Respiratory: No Pertinent History Gastrointestinal: Appendectomy Genitourinary: No Pertinent History Musculoskeletal: No Pertinent History Male Surgical History: No Pertinent History - Social History Smoking Status: Former smoker Exposure to second hand smoke: No Drug Use: none Patient Lives Alone: No - Nursing Vital Signs Nursing Vital Signs: Initial Vital Signs Temperature 96.8 F 08/17/21 23:20 Pulse Rate 70 08/17/21 23:20 Respiratory Rate 16 08/17/21 23:20 Blood Pressure 110/60 08/17/21 23:20 O2 Sat by Pulse Oximetry 97 08/17/21 23:20 Pain Scale Pain Intensity 0 - Physical Exam General Appearance: no apparent distress, alert, anxiety Eye Exam: PERRL/EOMI, eyes nml inspection Ears, Nose, Throat Exam: normal ENT inspection, moist mucous membranes Neck Exam: normal inspection, non-tender, supple, full range of motion Respiratory Exam: normal breath sounds, lungs clear, airway intact, No chest tenderness, No respiratory distress Cardiovascular Exam: regular rate/rhythm, normal heart sounds, normal peripheral pulses Gastrointestinal/Abdomen Exam: soft, normal bowel sounds, No tenderness, No guarding Rectal Exam: not done Back Exam: normal inspection, normal range of motion, No CVA tenderness, No vertebral tenderness Extremity Exam: normal inspection, normal range of motion, pelvis stable Neurologic Exam: alert, oriented x 3, cooperative, feather baler II-XII nml as tested, normal mood/affect, nml cerebellar function, nml station & gait, sensation nml Skin Exam: normal color, warm, dry Lymphatic Exam: No adenopathy SpO2 Interpretation: normal O2 Delivery: Room Air - Course Nursing assessment & vital signs reviewed: Yes Ordered Tests: Active Orders 24 hr Category Date Time Status Enema STAT Care 08/18/21 00:51 Active IV Insertion STAT Care 08/17/21 23:29 Active ABDOMEN AND PELVIS W/0 CONTRAS [CT] Stat Exams 08/17/21 23:34 Taken AMYLASE Stat Lab 08/17/21 23:29 Completed CMP Stat Lab 08/17/21 23:29 Completed LIPASE Stat Lab 08/17/21 23:29 Completed Lactic Acid Stat Lab 08/17/21 23:29 Completed TROPONIN Q3H Lab 08/17/21 23:30 Completed TROPONIN Q3H Lab 08/18/21 02:30 Ordered TROPONIN Q3H Lab 08/18/21 05:30 Ordered TROPONIN Q3H Lab 08/18/21 08:30 Ordered TROPONIN Q3H Lab 08/18/21 11:30 Ordered UA W/RFX CULTURE Stat Lab 08/18/21 00:05 Completed Medication Summary Generic Name Dose Route Start Last Admin Trade Name Freq PRN Reason Stop Dose Admin Sodium Chloride 1,000 mls @ 100 mls/hr 08/17/21 23:30 08/17/21 23:56 Sodium Chloride 0.9% 1000 Ml IV 09/16/21 23:29 100 mls/hr .Q10H MIRTHA Administration Discontinued Medications Generic Name Dose Route Start Last Admin Trade Name Freq PRN Reason Stop Dose Admin Ondansetron HCl 4 mg 08/17/21 23:29 08/17/21 23:57 Ondansetron Hcl 4 Mg/2 Ml Vial IV 08/17/21 23:30 4 mg STAT ONE Administration Ondansetron HCl Confirm 08/17/21 23:42 Ondansetron Hcl 4 Mg/2 Ml Vial Administered 08/17/21 23:43 Dose 4 mg .ROUTE .STK-MED ONE Potassium Chloride 20 meq 08/18/21 01:39 Potassium Chloride Tab 10 Meq Tab PO 08/18/21 01:40 STAT ONE Lab/Rad Data: Laboratory Result Diagrams 08/17/21 00:00 08/18/21 00:00 Laboratory Results 08/18/21 08/18/21 08/18/21 Range/Units 00:05 00:05 00:00 WBC (4.0-10.5) x10^3/uL RBC (4.1-5.6) x10^6/uL Hgb (12.5-18.0) g/dL Hct (42-50) % MCV (78-100) fL MCH (26-32) pg MCHC (32-36) g/dL RDW (11.5-14.0) % Plt Count (150-450) x10^3/uL MPV (7.5-11.0) fL Gran % (36.0-66.0) % Immature Gran % (Auto) (0.00-0.4) % Nucleat RBC Rel Count (0.00-0.1) % Eos # (Auto) (0-0.5) x10^3/uL Immature Gran # (Auto) (0.00-0.03) x10^3u/L Absolute Lymphs (auto) (1.0-4.6) x10^3/uL Absolute Monos (auto) (0.0-1.3) x10^3/uL Absolute Nucleated RBC (0.00-0.01) x10^3u/L Lymphocytes % (24.0-44.0) % Monocytes % (0.0-12.0) % Eosinophils % (0.00-5.0) % Basophils % (0.0-0.4) % Absolute Granulocytes (1.4-6.9) x10^3/uL Basophils # (0-0.4) x10^3/uL Sodium (137-145) mmol/L Potassium (3.5-5.1) mmol/L Chloride (98-107) mmol/L Carbon Dioxide (22-30) mmol/L Anion Gap (5-15) MEQ/L BUN (9-20) mg/dL Creatinine (0.66-1.25) mg/dL Estimated GFR ML/MIN Glucose (74-106) mg/dL Lactic Acid 1.5 (0.4-2.0) Calcium (8.4-10.2) mg/dL Total Bilirubin (0.2-1.3) mg/dL AST (17-59) U/L ALT (0-50) U/L Alkaline Phosphatase (38-126) U/L Troponin I (0.000-0.034) ng/mL Serum Total Protein (6.3-8.2) g/dL Albumin (3.5-5.0) g/dL Amylase (30-110) U/L Lipase (23-300) U/L Urinalys Dipstick Clnc MAIN LAB Urine Color PINK (YELLOW) Urine Appearance CLEAR (CLEAR) Urine pH 6.5 (5-6) Ur Specific Sherman 1.010 (1.005-1.025) POC Urine Protein Conf NEGATIVE (Negative) Urine Ketones NEGATIVE (NEGATIVE) Urine Nitrite POSITIVE (NEGATIVE) Urine Bilirubin NEGATIVE (NEGATIVE) Urine Urobilinogen 0.2 (0-1) mg/dL Urine Leukocytes NEGATIVE (NEGATIVE) Urine WBC (Auto) NONE (0-5) /HPF U Epithel Cells (Auto) RARE (FEW) /HPF Urine RBC NEGATIVE (0-5) Lucas/ul Ur Culture Indicated? NO Urine Glucose NEGATIVE (NEGATIVE) mg/dL Influenza Type A Ag NEGATIVE (NEGATIVE) Influenza Type B Ag NEGATIVE (NEGATIVE) RSV (PCR) NEGATIVE (Negative) SARS-CoV-2 (PCR) NEGATIVE (NEGATIVE) 08/18/21 08/18/21 08/17/21 Range/Units 00:00 00:00 00:00 WBC 9.1 (4.0-10.5) x10^3/uL RBC 3.07 L (4.1-5.6) x10^6/uL Hgb 9.4 L (12.5-18.0) g/dL Hct 29.9 L (42-50) % MCV 97.4 (78-100) fL MCH 30.6 (26-32) pg MCHC 31.4 L (32-36) g/dL RDW 16.3 H (11.5-14.0) % Plt Count 116 L (150-450) x10^3/uL MPV 9.9 (7.5-11.0) fL Gran % 83.0 H (36.0-66.0) % Immature Gran % (Auto) 0.3 (0.00-0.4) % Nucleat RBC Rel Count 0.0 (0.00-0.1) % Eos # (Auto) 0.18 (0-0.5) x10^3/uL Immature Gran # (Auto) 0.03 (0.00-0.03) x10^3u/L Absolute Lymphs (auto) 0.86 L (1.0-4.6) x10^3/uL Absolute Monos (auto) 0.42 (0.0-1.3) x10^3/uL Absolute Nucleated RBC 0.00 (0.00-0.01) x10^3u/L Lymphocytes % 9.5 L (24.0-44.0) % Monocytes % 4.6 (0.0-12.0) % Eosinophils % 2.0 (0.00-5.0) % Basophils % 0.6 (0.0-0.4) % Absolute Granulocytes 7.52 H (1.4-6.9) x10^3/uL Basophils # 0.05 (0-0.4) x10^3/uL Sodium 139 (137-145) mmol/L Potassium 3.1 L (3.5-5.1) mmol/L Chloride 102 (98-107) mmol/L Carbon Dioxide 24 (22-30) mmol/L Anion Gap 15.5 H (5-15) MEQ/L BUN 19 (9-20) mg/dL Creatinine 0.69 (0.66-1.25) mg/dL Estimated GFR > 60.0 ML/MIN Glucose 200 H (74-106) mg/dL Lactic Acid (0.4-2.0) Calcium 8.4 (8.4-10.2) mg/dL Total Bilirubin 0.80 (0.2-1.3) mg/dL AST 18 (17-59) U/L ALT 13 (0-50) U/L Alkaline Phosphatase 96 (38-126) U/L Troponin I 0.233 H* (0.000-0.034) ng/mL Serum Total Protein 5.6 L (6.3-8.2) g/dL Albumin 2.9 L (3.5-5.0) g/dL Amylase 45 (30-110) U/L Lipase 18 L (23-300) U/L Urinalys Dipstick Clnc Urine Color (YELLOW) Urine Appearance (CLEAR) Urine pH (5-6) Ur Specific Sherman (1.005-1.025) POC Urine Protein Conf (Negative) Urine Ketones (NEGATIVE) Urine Nitrite (NEGATIVE) Urine Bilirubin (NEGATIVE) Urine Urobilinogen (0-1) mg/dL Urine Leukocytes (NEGATIVE) Urine WBC (Auto) (0-5) /HPF U Epithel Cells (Auto) (FEW) /HPF Urine RBC (0-5) Lucas/ul Ur Culture Indicated? Urine Glucose (NEGATIVE) mg/dL Influenza Type A Ag (NEGATIVE) Influenza Type B Ag (NEGATIVE) RSV (PCR) (Negative) SARS-CoV-2 (PCR) (NEGATIVE) - Progress Progress: improved Progress Note: 08/18/21 01:30 CAT scan of the abdomen pelvis without contrast shows large bilateral pleural effusions. There is evidence of constipation. No mention of bowel obstruction. There is a somewhat complex 4.2 cm cystic lesion in the upper pole of the right kidney that is exophytic. There is also evidence of bilateral pleural effusions 08/18/21 01:32 08/18/21 01:45 Medical decision making: I spoke with Dr. Rodriguez, the patient's primary care physician. I reviewed the patient lab results, including the elevated troponin level, as well as the CAT scan results of the abdomen pelvis including the finding of constipation and the right kidney upper pole exophytic complex cystic lesion. Dr. Rodriguez states that after the enema we provide the patient here in the emergency department, patient can be transferred back to the fdc. Dr. Rodriguez and I both feel that the elevated troponin level is secondary to the patient's endocarditis. Discussed with : Merle Counseled pt/family regarding: lab results, diagnosis, need for follow-up, rad results - Departure Departure Disposition: Home Clinical Impression: Constipation, Endocarditis Condition: Stable Critical Care Time: No Referrals: SUNIL RODRIGUEZ MD [Primary Care Provider] - Follow up/PCP as directed Additional Instructions: Continue same fdc orders. May use fleets enemas rectally and glycerin suppositories rectally to help relieve patient's constipation.
[2021-08-17] MEDS ORDERED: Zofran 4 MG/2 ML VIAL IV ONE (23:29)
[2021-08-17] MEDS ORDERED: Sodium Chloride 0.9% 1000 ML 1,000 ML IV SCH (23:30)
[2021-08-17] MEDS ORDERED: Sodium Chloride 0.9% 1000 ML 1,000 ML ONE (23:42)
[2021-08-17] MEDS ORDERED: Zofran 4 MG/2 ML VIAL ONE (23:42)
[2021-08-18 00:13] LABS: Absolute Neutrophil Ct (ANC) 7.52 x10^3/uL (1.4-6.9); Basophil (Absolute #) 0.05 x10^3/uL (0-0.4); Eosinophil (Absolute #) 0.18 x10^3/uL (0-0.5); Hematocrit 29.9 % (42-50); Hemoglobin 9.4 g/dL (12.5-18.0); Lymphocyte (Absolute #) 0.86 x10^3/uL (1.0-4.6); Lymphocytes % 9.5 % (24.0-44.0); Mean Cell Volume 97.4 fL (78-100); Mean Corpuscular Hemoglobin 30.6 pg (26-32); Mean Corpuscular Hgb Concent. 31.4 g/dL (32-36); Mean Platelet Volume 9.9 fL (7.5-11.0); Monocyte (Absolute #) 0.42 x10^3/uL (0.0-1.3); Monocytes % 4.6 % (0.0-12.0); Platelet Count 116 x10^3/uL (150-450); Red Blood Count 3.07 x10^6/uL (4.1-5.6); Red Cell Distribution Width 16.3 % (11.5-14.0); White Blood Count 9.1 x10^3/uL (4.0-10.5)
[2021-08-18 00:27] LABS: ALBUMIN 2.9 g/dL (3.5-5.0); ALKALINE PHOSPHATASE 96 U/L (38-126); AMYLASE 45 U/L (30-110); ANION GAP 15.5 MEQ/L (5-15); BLOOD UREA NITROGEN 19 mg/dL (9-20); CHLORIDE 102 mmol/L (98-107); Calcium 8.4 mg/dL (8.4-10.2); Carbon Dioxide 24 mmol/L (22-30); Creatinine 1 0.69 mg/dL (0.66-1.25); EST GLOMERULAR FILTRATION RATE > 60.0 ML/MIN; Glucose 200 mg/dL (74-106); LIPASE 18 U/L (23-300); Potassium 3.1 mmol/L (3.5-5.1); SGOT/AST 18 U/L (17-59); SGPT/ALT 13 U/L (0-50); SODIUM 139 mmol/L (137-145); Total Protein 5.6 g/dL (6.3-8.2)
[2021-08-18 00:46] LABS: INFLUENZA A NEGATIVE (NEGATIVE); INFLUENZA B NEGATIVE (NEGATIVE); RESPIRATORY SYNCTIAL VIRUS NEGATIVE (Negative); SARS-CoV-2 Xpert Express NEGATIVE (NEGATIVE)
[2021-08-18 00:51] LABS: Epithelial Cells RARE /HPF (FEW)
[2021-08-18 00:52] LABS: Appearance CLEAR (CLEAR); Bilirubin NEGATIVE (NEGATIVE); Glucose NEGATIVE (NEGATIVE); Ketones NEGATIVE (NEGATIVE); Nitrite POSITIVE (NEGATIVE); Ph 6.5 (5-6); Protein,Urine Dip NEGATIVE (Negative); RBC NEGATIVE Ery/ul (0-5); Urine Cultured Indicated? NO; Urobilinogen 0.2 mg/dL (0-1)
[2021-08-18 01:11] LABS: Dipstick done @ ? MAIN LAB
[2021-08-18] MEDS ORDERED: Klor Con PO ONE ×3 (01:44→01:54)
[2021-08-18] MEDS: Klor Con PO ONE ×2 (01:47→01:57)
[2021-08-18 02:48] VITALS: BP 100/61; PULSE 71; O2SAT 97
--- NOTE | 2021-08-18 09:18 | XRAY ---
Indication: Constipation and vomiting. Multiple contiguous axial images obtained through the abdomen and pelvis without contrast. Comparison: None Lung bases demonstrates large bilateral pleural effusions with moderate bilateral compressive atelectasis. Cardiomegaly, mitral valve replacement surgery, cardiac pacer lead, and extensive coronary artery calcifications. Findings favor cardiac decompensation/CHF. Noncontrasted stomach and bowel loops appear nonobstructed. Mild/moderate diffuse scattered colonic fecal debris with moderate rectal impaction. No free fluid/air. Santa balloon catheter empties the urinary bladder. 6 cm right mid renal and 3 cm left mid renal cysts. Right upper kidney demonstrates a 3.6 x 6.7 x 3.1 cm exophytic mass with irregular margins that may represent complex cyst versus solid renal mass. No hydronephrosis or hydroureter. Scattered hepatic/splenic calcified granulomas. Tiny scattered chronic pancreatitis calcifications. Remaining liver, gallbladder, pancreas, spleen, adrenal glands, kidneys, ureters, and bladder are unremarkable for noncontrast exam. Moderate/significant scattered vascular calcifications including origins both main renal arteries. No AAA. Osseous structures intact with mild osteopenia, mild/moderate degenerative changes throughout the spine, and moderate right/advanced left hip degenerative arthropathy. Impression: 1. Cardiomegaly with large bilateral effusions and compressive atelectasis. Rule out cardiac decompensation/CHF. 2. Diffuse fecal stasis with rectal impaction. 3. Bilateral renal cysts. Irregular right upper pole exophytic mass as detailed may represent complex cysts versus solid renal mass. Initial screening sonogram may help differentiate. 4. Chronic findings including chronic pancreatitis calcifications, chronic bony findings, extensive arteriosclerotic disease, and old granulomatous disease.
== END 2021-08-18 02:48 | disposition home or self-care (01) ==
LOC: ED 23:12
DX: K59.00 Constipation, unspecified (principal); I38 Endocarditis, valve unspecified; R11.10 Vomiting, unspecified; I10 Essential (primary) hypertension; E11.9 Type 2 diabetes mellitus without complications; Z79.84 Long term (current) use of oral hypoglycemic drugs; Z79.899 Other long term (current) drug therapy; Z20.828 Contact with and (suspected) exposure to other viral communicable diseases
CPT/HCPCS: 0241U; 36000; 36415; 74176; 80053; 81015; 82150; 83605; 83690; 84484; 85025; 87040; 96374; 99284; J2405; A9270-GY